=== PATIENT | male | born 1975 | race Two or more races ===

== ENCOUNTER 2017-04-08 17:56 | Inpatient (IN) | payer MEDICARE, MEDICAID ==
[~2017-04-08] VITALS: Ht 162.6 cm; Wt 64.6 kg
[~2017-04-08 17:56] MED LIST: ALBUTEROL2.5 MG/3 M INH; ASPIR 8181 MG GT; BACLOFEN10 MG GT; COLACE100 MG/10 GT; DIABETA5 MG GT; DIGOXIN ELIX0.125 MG GT; DULCOLAX10 MG RC; FERROUS SULFAT325 MG GT; FOLIC ACID1 MG GT; GLUCOPHAGE500 MG GT; GLUCOPHAGE500 MG ORAL; KEPPRA LIQ100 MG/1 M GT; LANTUS SOL100 UNIT/1 SUBQ; LOPID600 MG GT; METOPROLOL TART25 MG GT; MILK OF MA400 MG/51 GT; MULTIVITAMINS1 EAC2 GT; PROTONIX40 M2 GT; TRAMADOL HCL50 MG GT; TYLENOL650 MG/20. GT; VITAMIN C500 M1 GT
[2017-04-08 17:59] VITALS: BP 131/56
[2017-04-08] MEDS ORDERED: BACLOFEN10 MG ORAL (18:13)
[2017-04-08] MEDS ORDERED: LORazepam Inj 2mg/ml 1ml IV PRN (18:15)
[2017-04-08] MEDS ORDERED: Morphine Sulfate 4mg/ml Inj IVP PRN (18:15)
[2017-04-08] MEDS ORDERED: Miralax 17gm pkt ORAL PRN (18:15)
[2017-04-08] MEDS ORDERED: DuoNeb 0.5-3(2.5)mg/3ml neb HHN PRN (18:15)
[2017-04-08] MEDS ORDERED: PERIDEX 0.12% O15 ML ORO (18:16)
[2017-04-08] MEDS ORDERED: DULCOLAX10 MG RC (18:18)
[2017-04-08] MEDS ORDERED: LOPRESSOR25 M1 GT (18:29)
[2017-04-08] MEDS ORDERED: LOPID600 MG GT (18:30)
[2017-04-08] MEDS ORDERED: METFORMIN HCL1000 M1 GT (18:31)
[2017-04-08] MEDS ORDERED: ZOFRAN4 M1 IM (18:32)
[2017-04-08] MEDS ORDERED: OMEPRAZOLE40 M1 GT (18:33)
[2017-04-08] MEDS ORDERED: NOVOLIN R100 UNIT/1 SUBQ (18:35)
[2017-04-08 18:36] LABS: EOSINOPHILS % (AUTO) 7.7 % (0.0-3.0); LYMPHOCYTES % (AUTO) 29.4 % (20.0-45.0); MEAN CORPUSCULAR HEMOGLOBIN 28.4 PG (27.0-31.0); MEAN CORPUSCULAR HGB CONC 32.3 G/DL (32.0-36.0); MEAN CORPUSCULAR VOLUME 88 FL (80-99); MEAN PLATELET VOLUME 8.5 FL (6.5-10.1); MONOCYTES % (AUTO) 4.8 % (1.0-10.0); PLATELET COUNT 172 K/UL (150-450); RED BLOOD COUNT 3.37 M/UL (4.70-6.10); RED CELL DISTRIBUTION WIDTH 17.7 % (11.6-14.8); WHITE BLOOD COUNT 9.3 K/UL (4.8-10.8)
--- NOTE | 2017-04-08 18:37 | Emergency Room Report ---
History of Present Illness General Chief Complaint: Gastrointestinal Bleed Source: Medical Record, EMS, PMD Present Illness HPI [id number] sent from SNF with one episode of blood in stool. Patient on trach/vent, not providing HPI. All info from PMD, EMR No family members bedside Allergies: Coded Allergies: No Known Allergies (Verified , 01/23/09) Patient History Limited by: medical condition Past Medical History: old chart reviewed, unable to obtain Past Surgical History: unable to obtain Pertinent Family History: unable to obtain Social History: Denies: alcohol use, drug use, smoking Immunizations: UTD Reviewed Nursing Documentation: PMH: Agreed, PSxH: Agreed Nursing Documentation-PMH Hx Cardiac Problems: Yes Hx Hypertension: Yes Hx Diabetes: Yes Hx Cancer: Yes Hx Neurological Problems: Yes - Subdural Hematoma, Chronic Encephalopathy Hx Cerebrovascular Accident: Yes Hx Seizures: Yes Hx Traumatic Brain Injury: Yes - Intracranial Trauma 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 Review of Systems All Other Systems: limited - Aphasic from trach/vent, chronic respi failure Physical Exam Vital Signs Date Time Temp Pulse Resp B/P Pulse Ox O2 Delivery O2 Flow Rate FiO2 04/08/17 17:43 103 18 30 04/08/17 17:43 Mechanical Ventilator 04/08/17 17:53 97.3 108/66 100 3.0 Sp02 EP Interpretation: reviewed, abnormal General Appearance: normal inspection, well appearing, no apparent distress, non-toxic Head: normocephalic, atraumatic Eyes: bilateral eye EOMI, bilateral eye PERRL ENT: normal ENT inspection, normal pharynx, no angioedema, normal voice Neck: normal inspection, full range of motion, supple, no bony tend, tracheotomy Respiratory: normal inspection, lungs clear, normal breath sounds, no respiratory distress, no retraction, no wheezing Cardiovascular #1: regular rate, rhythm, no edema, tachycardia Gastrointestinal: normal inspection, normal bowel sounds, non tender, soft, no guarding, no hernia Rectal: other - No bright red blood per rectum or dark stool Genitourinary: no CVA tenderness Musculoskeletal: normal inspection, back normal, normal range of motion, Janusz' s Sign negative Neurologic: normal inspection, alert, oriented x3, responsive, air cargo agent III-XII nml as tested, motor strength/tone normal, speech normal Psychiatric: normal inspection, judgement/insight normal, mood/affect normal Skin: normal inspection, normal color, no rash Medical Decision Making Diagnostic Impression: Primary Impression: Gastrointestinal hemorrhage Qualified Codes: K92.2 - Gastrointestinal hemorrhage, unspecified Additional Impression: Tachycardia ER Course Tachycardia - Normotensive. Afebrile. - Labs: H&H stable. No metabolic abnormality. UA negative for infection - ECG sinus tach - Will need admission for serial CBC, eval for lower GI bleed - No jaret red blood per rectum currently. Endorsed to Dr Hernandez at 630pm for [facility] admission EKG Diagnostic Results Rate: tachycardiac Rhythm: NSR ST Segments: no acute changes ASA given to the pt in ED: No Rhythm Strip Diag. Results EP Interpretation: yes Rate: 104 Chest X-Ray Diagnostic Results Chest X-Ray Ordered: Yes # of Views/Limited/Complete: 1 View EP Interpretation: Yes Interpretation: no consolidation, no effusion, no pneumothorax, no acute cardiopulmonary disease Indication: Other - Tachycardia Impression: No acute disease Interpreting ER Provider: Nancy Last Vital Signs Date Time Temp Pulse Resp B/P Pulse Ox O2 Delivery O2 Flow Rate FiO2 04/08/17 18:04 109 15 Mechanical Ventilator 12.0 30 04/08/17 17:59 98.0 131/56 100 Status: improved Disposition: ADMITTED INPATIENT Condition: Serious BEENA THOMPSON M.D. Apr 08, 2017 18:37
[2017-04-08 18:57] LABS: APPEARANCE,URINE CLEAR; KETONES,URINE NEGATIVE (NEGATIVE); LEUKOCYTE ESTERASE ,URINE NEGATIVE (NEGATIVE); NITRITE,URINE NEGATIVE (NEGATIVE); PH,URINE 6 (4.5-8.0); PROTEIN,URINE NEGATIVE (NEGATIVE); UROBILINOGEN,URINE NORMAL MG/DL (0.0-1.0)
[2017-04-08 19:02] LABS: PROTHROMBIN TIME 10.6 SEC (9.30-11.50); TROPONIN I < 0.30 ng/mL (<=0.30)
[2017-04-08 19:09] LABS: WBC,URINE 0-2 /HPF (0 - 0)
[2017-04-08 19:10] LABS: ALANINE AMINOTRANSFERASE 30 U/L (3-41); ALBUMIN/GLOBULIN RATIO 0.8 (1.0-2.7); ANION GAP 21 (5-15); ASPARTATE AMINO TRANSFERASE 47 U/L (5-40); CALCIUM 9.9 mg/dL (8.6-10.2); CARBON DIOXIDE 24 mEQ/L (20-30); CHLORIDE 92 mEQ/L (98-107); CREATININE 0.6 mg/dL (0.7-1.2); GLOMERULAR FILTRATION RATE > 60 mL/min (>60); HEMOLYSIS 85; POTASSIUM 4.7 mEQ/L (3.4-4.9); SODIUM 137 mEQ/L (135-145); TOTAL PROTEIN 8.9 g/dL (6.6-8.7)
[2017-04-08 19:15] LABS: HEMOLYSIS 16; IRON 71 ug/dL (59-158); TOTAL IRON BINDING CAPACITY 313 ug/dL (250-400)
[2017-04-08 19:41] VITALS: BP 110/73
[2017-04-08] MEDS ORDERED: Vancomycin 1250mg/D5W 275ml IVPB SCH ×2 (21:00)
[2017-04-08] MEDS: levETIRAcetam 500mg/5ml Liquid GT SCH (21:39)
[2017-04-08] MEDS: Metoprolol 25mg tab GT SCH (21:40)
[2017-04-08] MEDS: NovoLOG Insulin Flexpen SUBQ SCH (22:10)
--- NOTE | 2017-04-08 22:13 | Consultation ---
Consult Note Consult Note ID Dic# [id number] VAL MONROY M.D. Apr 08, 2017 22:13
[2017-04-08] MEDS ORDERED: Piperacillin/Tazobactam 3.375 GM in NS 110 ML IVPB SCH (23:00)
[2017-04-08] MEDS ORDERED: Vancomycin 1 GM in D5W 275 ML IV SCH (23:00)
--- NOTE | 2017-04-08 23:45 | Consultation ---
DATE OF CONSULTATION: 04/08/2017 INFECTIOUS DISEASE CONSULTATION CONSULTING PHYSICIAN: Charlie Newman M.D. REFERRING PHYSICIAN: Go Hernandez M.D. REASON FOR CONSULTATION: Evaluation of the patient for possible sepsis, antibiotic management, diarrhea, and low-grade fever. HISTORY OF PRESENT ILLNESS: The patient is a 41-year-old male with multiple medical problems who was admitted to this medical center for lower gastrointestinal bleed. Also, the patient was found to have diarrhea. Infectious Disease has been requested for further evaluation of the patient and antibiotic treatment. PAST MEDICAL HISTORY: 1. History of dysphagia status post percutaneous endoscopic gastrostomy placement. 2. History of subdural hematoma. 3. History of encephalopathy. 4. Seizure disorder. 5. History of ventriculoperitoneal shunt. 6. History of atrial fibrillation. 7. Hypertension. 8. Chronic obstructive pulmonary disease. 9. Status post trach. 10. Diabetes. 11. Anemia. MEDICATIONS: Zosyn and IV vancomycin. SOCIAL HISTORY: The patient lives in a alf. FAMILY HISTORY: Unobtainable. REVIEW OF SYSTEMS: Unobtainable. PHYSICAL EXAMINATION: VITAL SIGNS: Temperature 98 degrees, blood pressure 142/75, pulse 86, and respiratory rate 18. HEENT: Mild pale conjunctivae. No icterus. NECK: No lymphadenopathy. Trach in place. CHEST: Coarse breathing sounds. HEART: S1 and S2. ABDOMEN: Soft. G-tube in place. EXTREMITIES: No cyanosis. NEUROLOGIC: Nonverbal. LABORATORY DATA: White blood cells 9.2, hemoglobin 9.6, and platelets 172,000. UA is unremarkable. BUN 13 and creatinine 0.6. ALT, AST, and alkaline phosphatase are unremarkable. Chest x-ray is pending. ASSESSMENT: The patient is a 41-year-old male with multiple medical problems, who has: 1. Diarrhea, rule out Clostridium difficile. 2. Gastrointestinal bleed. 3. Anemia. PLAN: 1. We will hold Zosyn and vancomycin. 2. We will start the patient on oral Flagyl empirically. 3. Monitor CBC. 4. Monitor BMP. 5. We will send stool culture and stool for C. difficile. 6. Monitor sputum culture. 7. Based on the patient's clinical course and labs, we will do further recommendation. Thank you, Dr. Hernandez, for allowing me to participate in the care of this patient. I will follow the patient with you during this hospitalization. Charlie Newman M.D. DR: ANTHONY JOB#: [id number] CC:
[2017-04-09] MEDS: NovoLOG Insulin Flexpen SUBQ SCH ×4 (06:10→21:07)
[2017-04-09] MEDS: metroNIDAZOLE 500mg 100 ML IVPB SCH ×3 (06:44→21:39)
[2017-04-09 07:43] LABS: EOSINOPHILS % (AUTO) 9.1 % (0.0-3.0); LYMPHOCYTES % (AUTO) 36.3 % (20.0-45.0); MEAN CORPUSCULAR HEMOGLOBIN 27.3 PG (27.0-31.0); MEAN CORPUSCULAR HGB CONC 30.9 G/DL (32.0-36.0); MEAN CORPUSCULAR VOLUME 89 FL (80-99); MEAN PLATELET VOLUME 8.9 FL (6.5-10.1); MONOCYTES % (AUTO) 5.6 % (1.0-10.0); NEUTROPHILS % (AUTO) 46.9 % (45.0-75.0); PLATELET COUNT 190 K/UL (150-450); RED BLOOD COUNT 3.02 M/UL (4.70-6.10); RED CELL DISTRIBUTION WIDTH 17.8 % (11.6-14.8); WHITE BLOOD COUNT 9.6 K/UL (4.8-10.8)
[2017-04-09 08:00] VITALS: BP 124/67
[2017-04-09 08:07] LABS: ANION GAP 16 (5-15); CALCIUM 9.5 mg/dL (8.6-10.2); CARBON DIOXIDE 27 mEQ/L (20-30); CHLORIDE 95 mEQ/L (98-107); CREATININE 0.5 mg/dL (0.7-1.2); GLOMERULAR FILTRATION RATE > 60 mL/min (>60); HEMOLYSIS 0; PHOSPHORUS 2.9 mg/dL (2.5-4.8); POTASSIUM 3.9 mEQ/L (3.4-4.9); SODIUM 138 mEQ/L (135-145)
--- NOTE | 2017-04-09 08:51 | Infectious Diseases Prog Note ---
Assessment/Plan Assessment/Plan ASSESSMENT: 41 y/o male with: // Diarrhea r/o C.difficile - toxin pending // Afebrile without leukocytosis // LGIB - dec Hgb // Chronic VDRF SP trach, PEG // Chronic encephalopathy - h/o SDH, VPS // COPD // DM2 // NH resident // NKDA // Full Code PLAN: - continue flagyl d# 2 - f/u cultures, C.diff toxin - monitor CBC, temperatures - monitor BMP - vent support, trach care, aspiration precautions Subjective Allergies: Coded Allergies: No Known Allergies (Verified , 01/23/09) Subjective remains afebrile on vent dec Hgb Objective Vital Signs Last 24 Hour Vital Signs Date Time Temp Pulse Resp B/P Pulse Ox O2 Delivery O2 Flow Rate FiO2 04/09/17 06:57 106 13 30 04/09/17 05:23 106 20 30 04/09/17 04:00 30 04/09/17 04:00 103 04/09/17 02:47 104 14 30 04/09/17 00:41 101 13 30 04/09/17 00:00 97 04/09/17 00:00 30 04/08/17 22:58 102 12 30 04/08/17 21:40 109 142/75 04/08/17 21:02 103 16 30 04/08/17 19:49 98.0 101 16 110/73 100 Mechanical Ventilator 12.0 30 04/08/17 19:41 98.0 101 16 110/73 100 Mechanical Ventilator 04/08/17 18:44 100 16 30 04/08/17 18:04 109 15 Mechanical Ventilator 12.0 30 04/08/17 18:02 12.0 30 04/08/17 17:59 98.0 109 15 131/56 100 Mechanical Ventilator 04/08/17 17:53 97.3 101 13 108/66 100 Trach Collar 3.0 04/08/17 17:43 103 18 Mechanical Ventilator 30 04/08/17 17:43 103 18 30 Height (Feet): 5 Height (Inches): 4.00 Weight (Pounds): 135 General Appearance: no acute distress HEENT: status post trach Respiratory/Chest: decreased breath sounds Cardiovascular: normal rate, regular rhythm Abdomen: normal bowel sounds, soft, non tender, non distended, other - PEG Laboratory Tests Test 04/08/17 18:15 04/08/17 18:20 04/09/17 06:37 White Blood Count 9.3 K/UL (4.8-10.8) 9.6 K/UL (4.8-10.8) Red Blood Count 3.37 M/UL (4.70-6.10) L 3.02 M/UL (4.70-6.10) L Hemoglobin 9.6 G/DL (14.2-18.0) L 8.2 G/DL (14.2-18.0) L Hematocrit 29.7 % (42.0-52.0) L 26.7 % (42.0-52.0) L Mean Corpuscular Volume 88 FL (80-99) 89 FL (80-99) Mean Corpuscular Hemoglobin 28.4 PG (27.0-31.0) 27.3 PG (27.0-31.0) Mean Corpuscular Hemoglobin Concent 32.3 G/DL (32.0-36.0) 30.9 G/DL (32.0-36.0) L Red Cell Distribution Width 17.7 % (11.6-14.8) H 17.8 % (11.6-14.8) H Platelet Count 172 K/UL (150-450) 190 K/UL (150-450) Mean Platelet Volume 8.5 FL (6.5-10.1) 8.9 FL (6.5-10.1) Neutrophils (%) (Auto) 56.0 % (45.0-75.0) 46.9 % (45.0-75.0) Lymphocytes (%) (Auto) 29.4 % (20.0-45.0) 36.3 % (20.0-45.0) Monocytes (%) (Auto) 4.8 % (1.0-10.0) 5.6 % (1.0-10.0) Eosinophils (%) (Auto) 7.7 % (0.0-3.0) H 9.1 % (0.0-3.0) H Basophils (%) (Auto) 2.0 % (0.0-2.0) 2.0 % (0.0-2.0) Prothrombin Time 10.6 SEC (9.30-11.50) Prothromb Time International Ratio 1.0 (0.9-1.1) Sodium Level 137 mEQ/L (135-145) 138 mEQ/L (135-145) Potassium Level 4.7 mEQ/L (3.4-4.9) 3.9 mEQ/L (3.4-4.9) Chloride Level 92 mEQ/L (98-107) L 95 mEQ/L (98-107) L Carbon Dioxide Level 24 mEQ/L (20-30) 27 mEQ/L (20-30) Anion Gap 21 (5-15) H 16 (5-15) H Blood Urea Nitrogen 17 mg/dL (7-23) 12 mg/dL (7-23) Creatinine 0.6 mg/dL (0.7-1.2) L 0.5 mg/dL (0.7-1.2) L Estimat Glomerular Filtration Rate > 60 mL/min (>60) > 60 mL/min (>60) Glucose Level 187 mg/dL (74-106) H 164 mg/dL (74-106) H Calcium Level 9.9 mg/dL (8.6-10.2) 9.5 mg/dL (8.6-10.2) Iron Level 71 ug/dL (59-158) Total Iron Binding Capacity 313 ug/dL (250-400) Percent Iron Saturation 23 % (15-50) Unsaturated Iron Binding 242 ug/dL (112-346) Total Bilirubin 0.6 mg/dL (0.0-1.2) Aspartate Amino Transf (AST/SGOT) 47 U/L (5-40) H Alanine Aminotransferase (ALT/SGPT) 30 U/L (3-41) Alkaline Phosphatase 91 U/L (40-129) Troponin I < 0.30 ng/mL (<=0.30) Total Protein 8.9 g/dL (6.6-8.7) H Albumin 4.0 g/dL (3.5-5.2) 3.6 g/dL (3.5-5.2) Globulin 4.9 g/dL Albumin/Globulin Ratio 0.8 (1.0-2.7) L Urine Color Pale yellow Urine Appearance Clear Urine pH 6 (4.5-8.0) Urine Specific [place] 1.015 (1.005-1.035) Urine Protein Negative (NEGATIVE) Urine Glucose (UA) Negative (NEGATIVE) Urine Ketones Negative (NEGATIVE) Urine Occult Blood 1+ (NEGATIVE) H Urine Nitrite Negative (NEGATIVE) Urine Bilirubin Negative (NEGATIVE) Urine Urobilinogen Normal MG/DL (0.0-1.0) Urine Leukocyte Esterase Negative (NEGATIVE) Urine RBC 2-4 /HPF (0 - 0) H Urine WBC 0-2 /HPF (0 - 0) Urine Squamous Epithelial Cells None /LPF (NONE/OCC) Urine Bacteria None /HPF (NONE) Phosphorus Level 2.9 mg/dL (2.5-4.8) Current Medications Medications (Trade) Dose Ordered Sig/Lyudmila Route PRN Reason Start Time Stop Time Status Last Admin Dose Admin Acetaminophen (Tylenol) 650 mg Q4H PRN ORAL FEVER 04/08/17 18:15 05/08/17 18:14 Albuterol/ Ipratropium 3 ml 3 ml Q4H PRN HHN Shortness of Breath 04/08/17 18:15 04/13/17 18:14 Dextrose (Dextrose 50%) STAT PRN IV Hypoglycemia 04/08/17 18:15 05/08/17 18:14 Digoxin (Lanoxin) 0.25 mg DAILY GT 04/09/17 09:00 05/09/17 08:59 Insulin Aspart BEFORE MEALS AND HS SUBQ 04/08/17 21:00 05/08/17 20:59 04/09/17 06:10 Levetiracetam (Keppra) 500 mg Q12HR GT 04/08/17 21:00 05/08/17 20:59 04/08/17 21:39 Lorazepam (Ativan 2mg/ml 1ml) 2 mg Q2H PRN IV For Anxiety 04/08/17 18:15 04/15/17 18:14 Metoprolol Tartrate (Lopressor) 25 mg Q12HR GT 04/08/17 21:00 05/08/17 20:59 04/08/17 21:40 Metronidazole (Flagyl) 100 ml @ 100 mls/hr Q8HR IVPB 04/09/17 06:00 04/16/17 05:59 04/09/17 06:44 Morphine Sulfate (Morphine Sulfate) 4 mg Q4H PRN IVP Severe Pain (Pain Scale 7-10) 04/08/17 18:15 04/15/17 18:14 Ondansetron HCl (Zofran) 4 mg Q6H PRN IVP Nausea & Vomiting 04/08/17 18:15 05/08/17 18:14 Polyethylene Glycol (Miralax) 17 gm DAILYPRN PRN ORAL Constipation 04/08/17 18:15 05/08/17 18:14 Sodium Chloride (0.45% NS 1000ml) 1,000 ml @ 75 mls/hr [id number] IV 04/08/17 19:00 05/08/17 18:59 04/08/17 18:57 DIMITRI ABDUL Apr 09, 2017 08:51
[2017-04-09] MEDS: levETIRAcetam 500mg/5ml Liquid GT SCH ×2 (09:03→21:05)
[2017-04-09] MEDS: Digoxin Elixir 0.125mg GT SCH (09:03)
[2017-04-09] MEDS: Metoprolol 25mg tab GT SCH ×2 (09:03→21:05)
[2017-04-09] MEDS ORDERED: Nulytely 4L ORAL ONE (09:15)
[2017-04-09] MEDS ORDERED: Tubing IV Secondary IV ONE (10:00)
--- NOTE | 2017-04-09 10:58 | Diagnostic Imaging Report ---
Indications: Shortness of breath Technique: Portable AP chest Findings: Comparison: 11/03/14 Cardiac silhouette remains normal in size. Pulmonary vasculature remains within normal limits. Lungs and pleura remain clear. Tracheostomy tube, ventriculoperitoneal shunt remain in place.. IMPRESSION: No evidence of acute disease, unchanged Stable chronic changes as described
--- NOTE | 2017-04-09 11:15 | Consultation ---
DATE OF CONSULTATION: 04/09/2017 CHIEF COMPLAINT: Anemia. HISTORY OF PRESENT ILLNESS: The patient is a 41-year-old male on chronic vent and PEG, was transferred to the hospital with rectal bleeding. PAST MEDICAL HISTORY: 1. Seizure disorder. 2. Dysphagia with G-tube. 3. Chronic respiratory failure, on vent. 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 5. History of traumatic brain injury. 6. Hypercholesterolemia. 7. Anemia. 8. Multiple myeloma. 9. Diabetes. MEDICATIONS: Please see medication reconciliation list. ALLERGIES: No known drug allergies. SOCIAL HISTORY: Currently lives in custodial. No history of tobacco, alcohol, or drug abuse. FAMILY HISTORY: Noncontributory. REVIEW OF SYSTEMS: Unable to obtain. PHYSICAL EXAMINATION: GENERAL: The patient is intubated and lying uncomfortably. VITAL SIGNS: Temperature is 98 degrees, pulse 106, respirations 16, and blood pressure is 142/75. HEENT: Normocephalic and atraumatic. Pale conjunctivae. NECK: Supple. Trach in place CARDIOVASCULAR: Tachy. Regular rate. Plus S1 and S2. LUNGS: Clear to auscultation bilaterally. ABDOMEN: Soft and nontender. No rebound. No guarding. No peritoneal sign. EXTREMITIES: No cyanosis. No clubbing. No edema. LABORATORY DATA: White count is 9.6, hemoglobin 8.2, hematocrit 26.7, and platelet count 190,000. BUN is 12 and creatinine 0.5. Iron saturation . ASSESSMENT AND PLAN: The patient is a 41-year-old patient with anemia, dysphagia, and chronic respiratory failure. PLAN: We will watch the G-tube with 500 mL of water to see if there is any active upper GI bleeding. Meanwhile, the patient to be started on PPI for GI prophylaxis given the patient has chronic vent for a stress ulcerations. If the G-tube lavage is negative, we will plan to do a colonoscopy tomorrow to evaluate for lower GI bleeding. I want to thank, Dr. Hernandez, for this kind referral. Bolivar Piedra M.D. DR: Sierra JOB#: [id number] CC: Go Hernandez M.D.; Fax#: [phone]
[2017-04-09 12:00] VITALS: BP 97/53
--- NOTE | 2017-04-09 12:49 | History and Physical ---
History of Present Illness General Date patient seen: Apr 09, 2017 Reason for Hospitalization: Gastrointestinal Bleed Present Illness HPI 41 year old male with hx of chronic Vent/trach/peg vegetative state sent from SNF with one episode of blood in stool. Pt is admitted to [facility] for further workup. Allergies: Coded Allergies: No Known Allergies (Verified , 01/23/09) Medication History Scheduled Ascorbic Acid* (Vitamin C*), 500 MG GT DAILY, (Reported) Aspirin* (Aspir 81*), 81 MG GT DAILY, (Reported) Baclofen* (Baclofen*), 10 MG GT QHS, (Reported) Digoxin (Digoxin), 250 MCG GT DAILY, (Reported) Docusate Sodium (Docusate Sodium), 100 MG GT DAILY, (Reported) Ferrous Sulfate* (Ferrous Sulfate*), 330 MG GT DAILY, (Reported) Folic Acid* (Folic Acid*), 1 MG GT DAILY, (Reported) Gemfibrozil* (Lopid*), 600 MG GT TWICE A DAY, (Reported) Gemfibrozil* (Lopid*), 600 MG GT TWICE A DAY, (Reported) Glyburide* (Diabeta*), 5 MG GT BID, (Reported) Insulin Glargine (Lantus), 47 UNITS SUBQ Q12HR, (Reported) Insulin Regular, Human* (Novolin R*), 0 SUBQ .SLIDING SCALE, (Reported) Levetiracetam (Keppra), 500 MG GT Q12HR, (Reported) Metformin Hcl* (Glucophage*), 500 MG GT DAILY, (Reported) Metformin Hcl* (Metformin Hcl*), 1,000 MG GT BID, (Reported) Metoprolol Tartrate (Metoprolol Tartrate), 25 MG GT DAILY, (Reported) Metoprolol Tartrate* (Metoprolol Tartrate*), 25 MG GT Q12HR, (Reported) Multivitamins* (Multivitamins*), 5 ML GT DAILY, (Reported) Omeprazole (Omeprazole), 20 MG GT DAILY, (Reported) Pantoprazole Sodium (Protonix), 40 MG GT DAILY, (Reported) Scheduled PRN Acetaminophen (Acetaminophen), 650 MG GT Q4HR PRN for Prn Headache/Temp > 101, ( Reported) Albuterol Sulfate* (Albuterol Sulfate Hhn*), 3 ML INH Q6H PRN for Shortness of Breath, (Reported) Baclofen* (Baclofen*), 10 MG ORAL THREE TIMES A DAY PRN for q8h, (Reported) Bisacodyl (Dulcolax), 10 MG RC DAILY PRN for Constipation, (Reported) Magnesium Hydroxide* (Milk Of Magnesia*), 30 ML GT DAILY PRN for Constipation, ( Reported) Ondansetron (Zofran), 4 MG IM Q6H PRN for Nausea & Vomiting, (Reported) Tramadol Hcl* (Ultram*), 50 MG GT Q6H PRN for For Pain, (Reported) Miscellaneous Medications Bisacodyl (Dulcolax), Unknown Dose RC, (Reported) Patient History Healthcare decision maker Resuscitation status Advanced Directive on File Past Medical/Surgical History Past Medical/Surgical History: (1) Chronic vegetative state (2) Chronic respiratory failure (3) Feeding by G-tube (4) assisted resident Review of Systems All Other Systems: negative except mentioned in HPI Physical Exam General Appearance: WD/WN Lines, tubes and drains: peripheral, central line HEENT: normocephalic, atraumatic Neck: non-tender, normal alignment Respiratory/Chest: chest wall non-tender, lungs clear Breasts: no masses Cardiovascular/Chest: normal peripheral pulses, normal rate Abdomen: normal bowel sounds, non tender Genitourinary/Rectal: normal rectal exam, heme negative stool Extremities: normal range of motion, non-tender Skin Exam: normal pigmentation Neurologic: woods overseer II-XII grossly normal Last 24 Hour Vital Signs Date Time Temp Pulse Resp B/P Pulse Ox O2 Delivery O2 Flow Rate FiO2 04/09/17 12:00 100.0 97 12 97/53 100 Mechanical Ventilator 30 04/09/17 12:00 30 04/09/17 10:52 104 15 30 04/09/17 09:03 106 124/67 04/09/17 09:03 106 04/09/17 08:49 106 16 30 04/09/17 08:00 99.9 106 13 124/67 100 Mechanical Ventilator 30 04/09/17 08:00 30 04/09/17 08:00 99 04/09/17 06:57 106 13 30 04/09/17 05:23 106 20 30 04/09/17 04:00 30 04/09/17 04:00 103 04/09/17 02:47 104 14 30 04/09/17 00:41 101 13 30 04/09/17 00:00 97 04/09/17 00:00 30 04/08/17 22:58 102 12 30 04/08/17 21:40 109 142/75 04/08/17 21:02 103 16 30 04/08/17 19:49 98.0 101 16 110/73 100 Mechanical Ventilator 12.0 30 04/08/17 19:41 98.0 101 16 110/73 100 Mechanical Ventilator 04/08/17 18:44 100 16 30 04/08/17 18:04 109 15 Mechanical Ventilator 12.0 30 04/08/17 18:02 12.0 30 04/08/17 17:59 98.0 109 15 131/56 100 Mechanical Ventilator 04/08/17 17:53 97.3 101 13 108/66 100 Trach Collar 3.0 04/08/17 17:43 103 18 Mechanical Ventilator 30 04/08/17 17:43 103 18 30 Intake and Output 04/08/17 04/09/17 19:00 07:00 Intake Total 0 ml 979 ml Output Total 300 ml Balance -300 ml 979 ml Intake Oral 0 ml IV Total 929 ml Other 50 ml Output Urine Total 300 ml # Voids 2 # Bowel Movements 7 Laboratory Tests Test 04/08/17 18:15 04/08/17 18:20 04/09/17 06:37 White Blood Count 9.3 K/UL (4.8-10.8) 9.6 K/UL (4.8-10.8) Red Blood Count 3.37 M/UL (4.70-6.10) L 3.02 M/UL (4.70-6.10) L Hemoglobin 9.6 G/DL (14.2-18.0) L 8.2 G/DL (14.2-18.0) L Hematocrit 29.7 % (42.0-52.0) L 26.7 % (42.0-52.0) L Mean Corpuscular Volume 88 FL (80-99) 89 FL (80-99) Mean Corpuscular Hemoglobin 28.4 PG (27.0-31.0) 27.3 PG (27.0-31.0) Mean Corpuscular Hemoglobin Concent 32.3 G/DL (32.0-36.0) 30.9 G/DL (32.0-36.0) L Red Cell Distribution Width 17.7 % (11.6-14.8) H 17.8 % (11.6-14.8) H Platelet Count 172 K/UL (150-450) 190 K/UL (150-450) Mean Platelet Volume 8.5 FL (6.5-10.1) 8.9 FL (6.5-10.1) Neutrophils (%) (Auto) 56.0 % (45.0-75.0) 46.9 % (45.0-75.0) Lymphocytes (%) (Auto) 29.4 % (20.0-45.0) 36.3 % (20.0-45.0) Monocytes (%) (Auto) 4.8 % (1.0-10.0) 5.6 % (1.0-10.0) Eosinophils (%) (Auto) 7.7 % (0.0-3.0) H 9.1 % (0.0-3.0) H Basophils (%) (Auto) 2.0 % (0.0-2.0) 2.0 % (0.0-2.0) Prothrombin Time 10.6 SEC (9.30-11.50) Prothromb Time International Ratio 1.0 (0.9-1.1) Sodium Level 137 mEQ/L (135-145) 138 mEQ/L (135-145) Potassium Level 4.7 mEQ/L (3.4-4.9) 3.9 mEQ/L (3.4-4.9) Chloride Level 92 mEQ/L (98-107) L 95 mEQ/L (98-107) L Carbon Dioxide Level 24 mEQ/L (20-30) 27 mEQ/L (20-30) Anion Gap 21 (5-15) H 16 (5-15) H Blood Urea Nitrogen 17 mg/dL (7-23) 12 mg/dL (7-23) Creatinine 0.6 mg/dL (0.7-1.2) L 0.5 mg/dL (0.7-1.2) L Estimat Glomerular Filtration Rate > 60 mL/min (>60) > 60 mL/min (>60) Glucose Level 187 mg/dL (74-106) H 164 mg/dL (74-106) H Calcium Level 9.9 mg/dL (8.6-10.2) 9.5 mg/dL (8.6-10.2) Iron Level 71 ug/dL (59-158) Total Iron Binding Capacity 313 ug/dL (250-400) Percent Iron Saturation 23 % (15-50) Unsaturated Iron Binding 242 ug/dL (112-346) Total Bilirubin 0.6 mg/dL (0.0-1.2) Aspartate Amino Transf (AST/SGOT) 47 U/L (5-40) H Alanine Aminotransferase (ALT/SGPT) 30 U/L (3-41) Alkaline Phosphatase 91 U/L (40-129) Troponin I < 0.30 ng/mL (<=0.30) Total Protein 8.9 g/dL (6.6-8.7) H Albumin 4.0 g/dL (3.5-5.2) 3.6 g/dL (3.5-5.2) Globulin 4.9 g/dL Albumin/Globulin Ratio 0.8 (1.0-2.7) L Urine Color Pale yellow Urine Appearance Clear Urine pH 6 (4.5-8.0) Urine Specific [place] 1.015 (1.005-1.035) Urine Protein Negative (NEGATIVE) Urine Glucose (UA) Negative (NEGATIVE) Urine Ketones Negative (NEGATIVE) Urine Occult Blood 1+ (NEGATIVE) H Urine Nitrite Negative (NEGATIVE) Urine Bilirubin Negative (NEGATIVE) Urine Urobilinogen Normal MG/DL (0.0-1.0) Urine Leukocyte Esterase Negative (NEGATIVE) Urine RBC 2-4 /HPF (0 - 0) H Urine WBC 0-2 /HPF (0 - 0) Urine Squamous Epithelial Cells None /LPF (NONE/OCC) Urine Bacteria None /HPF (NONE) Phosphorus Level 2.9 mg/dL (2.5-4.8) Height (Feet): 5 Height (Inches): 4.00 Weight (Pounds): 135 Medications Current Medications Medications (Trade) Dose Ordered Sig/Lyudmila Route PRN Reason Start Time Stop Time Status Last Admin Dose Admin Acetaminophen (Tylenol) 650 mg Q4H PRN ORAL FEVER 04/08/17 18:15 05/08/17 18:14 Albuterol/ Ipratropium 3 ml 3 ml Q4H PRN HHN Shortness of Breath 04/08/17 18:15 04/13/17 18:14 Dextrose (Dextrose 50%) STAT PRN IV Hypoglycemia 04/08/17 18:15 05/08/17 18:14 Digoxin (Lanoxin) 0.25 mg DAILY GT 04/09/17 09:00 05/09/17 08:59 04/09/17 09:03 Insulin Aspart BEFORE MEALS AND HS SUBQ 04/08/17 21:00 05/08/17 20:59 04/09/17 12:15 Levetiracetam (Keppra) 500 mg Q12HR GT 04/08/17 21:00 05/08/17 20:59 04/09/17 09:03 Lorazepam (Ativan 2mg/ml 1ml) 2 mg Q2H PRN IV For Anxiety 04/08/17 18:15 04/15/17 18:14 Metoprolol Tartrate (Lopressor) 25 mg Q12HR GT 04/08/17 21:00 05/08/17 20:59 04/09/17 09:03 Metronidazole (Flagyl) 100 ml @ 100 mls/hr Q8HR IVPB 04/09/17 06:00 04/16/17 05:59 04/09/17 06:44 Morphine Sulfate (Morphine Sulfate) 4 mg Q4H PRN IVP Severe Pain (Pain Scale 7-10) 04/08/17 18:15 04/15/17 18:14 Ondansetron HCl (Zofran) 4 mg Q6H PRN IVP Nausea & Vomiting 04/08/17 18:15 05/08/17 18:14 Pantoprazole (Protonix) 40 mg DAILY IV 04/10/17 09:00 05/10/17 08:59 Polyethylene Glycol (Miralax) 17 gm DAILYPRN PRN ORAL Constipation 04/08/17 18:15 05/08/17 18:14 Sodium Chloride (0.45% NS 1000ml) 1,000 ml @ 75 mls/hr [id number] IV 04/08/17 19:00 05/08/17 18:59 04/09/17 09:04 Assessment/Plan Problem List: (1) Hemorrhagic shock SNOMED: 812084 (2) Chronic vegetative state ICD Codes: R40.3 - Persistent vegetative state SNOMED: 15273106, 032408633 (3) Tachycardia ICD Codes: R00.0 - Tachycardia, unspecified SNOMED: 5476334 (4) Sepsis ICD Codes: A41.9 - Sepsis, unspecified organism SNOMED: 17366360 (5) Pneumonia ICD Codes: J18.9 - Pneumonia, unspecified organism SNOMED: 423451313 (6) Feeding by G-tube ICD Codes: Z93.1 - Gastrostomy status SNOMED: 066952322, 569078856 (7) Chronic respiratory failure ICD Codes: J96.10 - Chronic respiratory failure, unspecified whether with hypoxia or hypercapnia SNOMED: 90787350 Respiratory: monitor respiratory rate, adjust FIO2, CXR Cardiac: continue to monitor HR/BP Renal: F/U I&O, keep IV fluid Infectious Disease: check cultures, continue antibiotics Gastrointestinal: continue feedings/current rate Endocrine: monitor blood sugar, check HgA1C, continue sliding scale insulin Hematologic: monitor H/H, transfuse if hgb<8.5 Neurologic: PRN Ativan, keep patient comfortable Affect: PRN ativan Prophylaxis: Protonix, Heparin Notes Reviewed: television program director, renal Discussed with: nurses, consultants, disease case manager SHANEL NIEVES Apr 09, 2017 12:49
[2017-04-09 16:00] VITALS: BP 131/64
[2017-04-09] MEDS ORDERED: 1/2 NS 1000ml IV ONE (18:52)
[2017-04-10] VITALS (7 sets, daily range): BP systolic 100–111; BP diastolic 54–63
[2017-04-10 06:14] LABS: MEAN CORPUSCULAR HGB CONC 32.7 G/DL (32.0-36.0); MEAN CORPUSCULAR VOLUME 89 FL (80-99); MEAN PLATELET VOLUME 8.5 FL (6.5-10.1); PLATELET COUNT 137 K/UL (150-450); RED BLOOD COUNT 2.42 M/UL (4.70-6.10); RED CELL DISTRIBUTION WIDTH 17.6 % (11.6-14.8); WHITE BLOOD COUNT 7.3 K/UL (4.8-10.8)
[2017-04-10] MEDS: metroNIDAZOLE 500mg 100 ML IVPB SCH ×3 (06:14→21:14)
[2017-04-10] MEDS: NovoLOG Insulin Flexpen SUBQ SCH ×4 (06:15→21:01)
[2017-04-10 06:18] LABS: ANION GAP 17 (5-15); CALCIUM 9.2 mg/dL (8.6-10.2); CARBON DIOXIDE 24 mEQ/L (20-30); CHLORIDE 99 mEQ/L (98-107); CREATININE 0.4 mg/dL (0.7-1.2); GLOMERULAR FILTRATION RATE > 60 mL/min (>60); HEMOLYSIS 31; POTASSIUM 3.7 mEQ/L (3.4-4.9); SODIUM 140 mEQ/L (135-145)
[2017-04-10 08:32] LABS: ANISOCYTOSIS 1+; BAND NEUTROPHILS % (MANUAL) 0 % (0-8); BASOPHILS % (MANUAL) 0 % (0-2); EOSINOPHILS % (MANUAL) 7 % (0-3); HYPOCHROMASIA 1+; LYMPHOCYTES % (MANUAL) 40 % (20-45); NEUTROPHILS % (MANUAL) 47 % (45-75); PLATELET ESTIMATE DECREASED; PLATELET MORPHOLOGY NORMAL; TOTAL CELLS COUNTED 100
[2017-04-10] MEDS: levETIRAcetam 500mg/5ml Liquid GT SCH ×2 (08:52→20:59)
[2017-04-10] MEDS: Digoxin Elixir 0.125mg GT SCH (08:53)
[2017-04-10] MEDS: Metoprolol 25mg tab GT SCH ×2 (09:00→21:00)
[2017-04-10] MEDS: Pantoprazole Inj IV SCH (09:35)
[2017-04-10 09:54] LABS: OTHERS PATHOLOGIST COMMENT
--- NOTE | 2017-04-10 12:15 | Pulmonology Progress Note ---
Assessment/Plan Problems: (1) Hemorrhagic shock (2) Chronic vegetative state (3) Tachycardia (4) Sepsis (5) Pneumonia (6) Feeding by G-tube (7) Chronic respiratory failure Respiratory: monitor respiratory rate, adjust FIO2, CXR Cardiac: continue to monitor HR/BP Renal: F/U I&O, keep IV fluid, check electrolytes Infectious Disease: check cultures, continue antibiotics, other - f/u stool for c-diff Gastrointestinal: continue feedings/current rate Endocrine: monitor blood sugar, check TSH Hematologic: monitor H/H, transfuse if hgb<8.5 Neurologic: PRN Ativan, PRN Morphine, keep patient comfortable Affect: PRN ativan Prophylaxis: Protonix Notes Reviewed: cardio, renal Discussed with: nurses, consultants, manager case Subjective ROS Limited/Unobtainable: Yes Allergies: Coded Allergies: No Known Allergies (Verified , 01/23/09) Objective Last 24 Hour Vital Signs Date Time Temp Pulse Resp B/P Pulse Ox O2 Delivery O2 Flow Rate FiO2 04/10/17 11:04 88 14 30 04/10/17 09:01 78 12 30 04/10/17 09:00 78 103/62 04/10/17 08:53 78 04/10/17 08:00 97.9 79 12 103/62 100 Mechanical Ventilator 30 04/10/17 08:00 30 04/10/17 06:36 82 12 30 04/10/17 05:24 93 18 30 04/10/17 04:00 97 04/10/17 04:00 30 04/10/17 04:00 97.9 91 14 109/63 100 Mechanical Ventilator 04/10/17 02:57 98 13 30 04/10/17 01:24 90 12 30 04/10/17 00:00 30 04/10/17 00:00 89 04/09/17 23:07 88 12 30 04/09/17 21:05 97 118/54 04/09/17 20:36 99 16 30 04/09/17 20:00 30 04/09/17 20:00 99 04/09/17 19:14 92 17 30 04/09/17 16:59 96 12 30 04/09/17 16:00 78 04/09/17 16:00 30 04/09/17 16:00 98.4 97 13 131/64 100 Mechanical Ventilator 30 04/09/17 15:05 100 12 30 04/09/17 12:49 102 12 30 Intake and Output 04/09/17 04/10/17 19:00 07:00 Intake Total 850 ml 1650 ml Output Total 600 ml Balance 850 ml 1050 ml IV Total 850 ml 1000 ml Other 650 ml Output Urine Total 600 ml # Voids 2 # Bowel Movements 8 8 General Appearance: WD/WN HEENT: normocephalic, atraumatic, status post trach Respiratory/Chest: chest wall non-tender, crackles/rales Cardiovascular: normal peripheral pulses, normal rate Abdomen: normal bowel sounds, soft, non tender Genitourinary: normal external genitalia Extremities: no cyanosis Skin: no rash Neurologic/Psychiatric: pigment processor II-XII grossly normal, no motor/sensory deficits Lymphatic: no neck adenopathy, no groin adenopathy Musculoskeletal: no effusion Laboratory Tests 04/09/17 14:50: Stool Occult Blood Positive 04/10/17 03:45: White Blood Count 7.3, Red Blood Count 2.42L, Hemoglobin 7.0L, Hematocrit 21.5L , Mean Corpuscular Volume 89, Mean Corpuscular Hemoglobin 29.0, Mean Corpuscular Hemoglobin Concent 32.7, Red Cell Distribution Width 17.6H, Platelet Count 137L, Mean Platelet Volume 8.5, Neutrophils (%) (Auto) , Lymphocytes (%) (Auto) , Monocytes (%) (Auto) , Eosinophils (%) (Auto) , Basophils (%) (Auto) , Differential Total Cells Counted 100, Neutrophils % ( Manual) 47, Lymphocytes % (Manual) 40, Monocytes % (Manual) 6, Eosinophils % ( Manual) 7H, Basophils % (Manual) 0, Band Neutrophils 0, Other Cell Type Pathologist comment, Platelet Estimate DecreasedL, Platelet Morphology Normal, Hypochromasia 1+, Anisocytosis 1+, Sodium Level 140, Potassium Level 3.7, Chloride Level 99, Carbon Dioxide Level 24, Anion Gap 17H, Blood Urea Nitrogen 5L, Creatinine 0.4L, Estimat Glomerular Filtration Rate > 60, Glucose Level 158H , Calcium Level 9.2 Current Medications Medications (Trade) Dose Ordered Sig/Lyudmila Route PRN Reason Start Time Stop Time Status Last Admin Dose Admin Acetaminophen (Tylenol) 650 mg Q4H PRN ORAL FEVER 04/08/17 18:15 05/08/17 18:14 Albuterol/ Ipratropium 3 ml 3 ml Q4H PRN HHN Shortness of Breath 04/08/17 18:15 04/13/17 18:14 Dextrose (Dextrose 50%) STAT PRN IV Hypoglycemia 04/08/17 18:15 05/08/17 18:14 Digoxin (Lanoxin) 0.25 mg DAILY GT 04/09/17 09:00 05/09/17 08:59 04/10/17 08:53 Insulin Aspart BEFORE MEALS AND HS SUBQ 04/08/17 21:00 05/08/17 20:59 04/10/17 11:42 Levetiracetam (Keppra) 500 mg Q12HR GT 04/08/17 21:00 05/08/17 20:59 04/10/17 08:52 Lorazepam (Ativan 2mg/ml 1ml) 2 mg Q2H PRN IV For Anxiety 04/08/17 18:15 04/15/17 18:14 Metoprolol Tartrate (Lopressor) 25 mg Q12HR GT 04/08/17 21:00 05/08/17 20:59 04/09/17 21:05 Metronidazole (Flagyl) 100 ml @ 100 mls/hr Q8HR IVPB 04/09/17 06:00 04/16/17 05:59 04/10/17 06:14 Morphine Sulfate (Morphine Sulfate) 4 mg Q4H PRN IVP Severe Pain (Pain Scale 7-10) 04/08/17 18:15 04/15/17 18:14 Ondansetron HCl (Zofran) 4 mg Q6H PRN IVP Nausea & Vomiting 04/08/17 18:15 05/08/17 18:14 Pantoprazole (Protonix) 40 mg DAILY IV 04/10/17 09:00 05/10/17 08:59 04/10/17 09:35 Polyethylene Glycol (Miralax) 17 gm DAILYPRN PRN ORAL Constipation 04/08/17 18:15 05/08/17 18:14 Sodium Chloride (0.45% NS 1000ml) 1,000 ml @ 75 mls/hr [id number] IV 04/08/17 19:00 05/08/17 18:59 04/10/17 11:43 SHANEL NIEVES Apr 10, 2017 12:15
--- NOTE | 2017-04-10 12:48 | Pre-Procedure Note/Attestation ---
Pre-Procedure Note/Attestation Complete Prior to Procedure Planned Procedure: not applicable Procedure Narrative: colonoscopy Indications for Procedure Pre-Operative Diagnosis: anemia Attestation I attest that I discussed the nature of the procedure; its benefits; risks and complications; and alternatives (and the risks and benefits of such alternatives ), prior to the procedure, with the patient (or the patient's legal customer response representative). I attest that, if there was a reasonable possibility of needing a blood transfusion, the patient (or the patient's legal customer response representative) was given the [facility] standardized written summary, pursuant to the Humphrey Anupam Blood Safety Act ([place] Health and Safety Code # 1645, as amended). I attest that I re-evaluated the patient just prior to the surgery and that there has been no change in the patient's H&P, except as documented below: RAMANA SORENSON Apr 10, 2017 12:48
--- NOTE | 2017-04-10 13:04 | Endoscopy Procedure Note ---
Endoscopy Procedure Note Indication for Procedure: anemia Procedures Performed: colonoscopy Operative Findings/Diagnosis: hemorrhoids Specimen: none Pt Tolerated Procedure Well: Yes Estimated Blood Loss: none Anesthesiologist: raven Anesthesia: MAC Implant(s) used?: No 50 yrs or older w/o bx or poly: Not Applicable 10yrs. F/U not recommended: Not Applicable RAMANA SORENSON Apr 10, 2017 13:04
--- NOTE | 2017-04-10 13:11 | Immediate Post-Op Evaluation ---
Immediate Post-Op Evalulation Immediate Post-Op Evalulation Procedure: colonoscopy Date of Evaluation: Apr 10, 2017 Time of Evaluation: 13:09 IV Fluids: 150 Blood Pressure Systolic: 107 Blood Pressure Diastolic: 65 Pulse Rate: 74 Respiratory Rate: 14 O2 Sat by Pulse Oximetry: 100 Nausea: No Vomiting: No Complications none Patient Status: reacts, ventilated Hydration Status: adequate Drug: none TINY GERBER CRNA Apr 10, 2017 13:11
--- NOTE | 2017-04-10 13:15 | Anethesia Preoperative Eval ---
Anesthesia Pre-op PMH/ROS General Date of Evaluation: Apr 10, 2017 Time of Evaluation: 12:55 Anesthesiologist: chris ASA Score: ASA 4 Mallampati Score Class I : Soft palate, uvula, fauces, pillars visible Class II: Soft palate, uvula, fauces visible Class III: Soft palate, base of uvula visible Class IV: Only hard plate visible Mallampati Classification: Class III Surgeon: raquel Diagnosis: anemia/gl bleed Surgical Procedure: colonoscopy Anesthesia History: none Family History: no anesthesia problems Allergies: Coded Allergies: No Known Allergies (Verified , 01/23/09) Medications: see eMAR Past Medical History Cardiovascular: Reports: HTN Pulmonary: Reports: other - mech ventilated/trached Gastrointestinal/Genitourinary: Denies: CRI, ESRD, GERD, other Neurologic/Psychiatric: Reports: other - chronic veg state Endocrine: Reports: DM HEENT: Denies: NIKOLSKI (L), NIKOLSKI (R), cataract (L), cataract (R), glaucoma, other Hematology/Immune: Reports: anemia Musculoskeletal/Integumentary: Denies: DDD, DJD, OA, RA, edema, other PMH Narrative: 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 Exam Physician Exam Last Vital Signs Date Time Temp Pulse Resp B/P Pulse Ox O2 Delivery O2 Flow Rate FiO2 04/10/17 12:39 82 14 30 04/10/17 09:00 103/62 04/10/17 08:00 97.9 100 Mechanical Ventilator 04/08/17 19:49 12.0 Constitutional: other - trach/vent/peg/vegetated stated Neurologic: other - reacts to pain Cardiovascular: RRR Respiratory: CTA Gastrointestinal: S/NT/ND Airway Exam Mallampati Score: Class III MO: limited ROM: limited Dentures: no lower, no upper Anesthesia Pre-op A/P Labs Hematology Test 04/10/17 03:45 White Blood Count 7.3 K/UL (4.8-10.8) Red Blood Count 2.42 M/UL (4.70-6.10) L Hemoglobin 7.0 G/DL (14.2-18.0) L Hematocrit 21.5 % (42.0-52.0) L Mean Corpuscular Volume 89 FL (80-99) Mean Corpuscular Hemoglobin 29.0 PG (27.0-31.0) Mean Corpuscular Hemoglobin Concent 32.7 G/DL (32.0-36.0) Red Cell Distribution Width 17.6 % (11.6-14.8) H Platelet Count 137 K/UL (150-450) L Mean Platelet Volume 8.5 FL (6.5-10.1) Neutrophils (%) (Auto) % (45.0-75.0) Lymphocytes (%) (Auto) % (20.0-45.0) Monocytes (%) (Auto) % (1.0-10.0) Eosinophils (%) (Auto) % (0.0-3.0) Basophils (%) (Auto) % (0.0-2.0) Differential Total Cells Counted 100 Neutrophils % (Manual) 47 % (45-75) Lymphocytes % (Manual) 40 % (20-45) Monocytes % (Manual) 6 % (1-10) Eosinophils % (Manual) 7 % (0-3) H Basophils % (Manual) 0 % (0-2) Band Neutrophils 0 % (0-8) Other Cell Type Pathologist comment Platelet Estimate Decreased L Platelet Morphology Normal Hypochromasia 1+ Anisocytosis 1+ Chemistry Test 04/10/17 03:45 Sodium Level 140 mEQ/L (135-145) Potassium Level 3.7 mEQ/L (3.4-4.9) Chloride Level 99 mEQ/L (98-107) Carbon Dioxide Level 24 mEQ/L (20-30) Anion Gap 17 (5-15) H Blood Urea Nitrogen 5 mg/dL (7-23) L Creatinine 0.4 mg/dL (0.7-1.2) L Estimat Glomerular Filtration Rate > 60 mL/min (>60) Glucose Level 158 mg/dL (74-106) H Calcium Level 9.2 mg/dL (8.6-10.2) Studies Pre-op Studies: EKG - sr Risk Assessment & Plan Assessment: mac Status Change Before Surgery: No Pre-Antibiotics Drug: none TINY GERBER CRNA Apr 10, 2017 13:15
--- NOTE | 2017-04-10 13:41 | 48 Hour Post Anesthesia Eval ---
Post Anesthesia Evaluation Procedure: colonoscopy Date of Evaluation: Apr 10, 2017 Time of Evaluation: 13:41 Blood Pressure Systolic: 120 0: 74 Pulse Rate: 70 Respiratory Rate: 14 O2 Sat by Pulse Oximetry: 100 Airway: other - mech ventilated Nausea: No Vomiting: No Hydration Status: adequate Mental Status/LOC: patient returned to baseline Post-Anesthesia Complications: none Follow-up care needed: N/A TINY GERBER CRNA Apr 10, 2017 13:41
--- NOTE | 2017-04-10 18:01 | Procedure Note ---
DATE OF PROCEDURE: 04/10/2017 PROCEDURE: Colonoscopy. SURGEON: Bolivar Piedra M.D. ANESTHESIA: Per EARNEST, Linda Gudino. REFERRING PHYSICIAN: Go Hernandez M.D. INSTRUMENT: Olympus adult flexible colonoscope. INDICATION: Anemia. The procedure, risks, benefits, and possible consequences, including hemorrhage, aspiration, perforation and infection, and alternative treatments, were explained to the patient/legal guardian by Dr. Bolivar Piedra and the patient/legal guardian understood and accepted these risks. DESCRIPTION OF PROCEDURE: After informed consent was obtained and the patient was adequately sedated, first rectal exam was performed, which was positive for internal hemorrhoids. Then, the scope was advanced from rectum into the cecum, documented by appendiceal orifice, ileocecal valve, and right upper quadrant palpation. Quality of preparation was good. The patient had normal colonoscopic examination. No active bleeding was seen. No mass. No polyp. No diverticulosis. No active bleeding. Retroflexion of the rectum showed evidence of internal hemorrhoids. SUMMARY OF FINDINGS: Normal colonoscopic examination except for internal hemorrhoids. RECOMMENDATIONS: Resume tube feeding. Monitor hemoglobin and hematocrit. Transfuse as needed. If the patient's stool OB comes back positive, we will consider doing endoscopy. I want to thank, Dr. Hernandez, for this kind referral. Bolivar Piedra M.D. DR: TRINIDAD JOB#: [id number] CC: Go Hernandez M.D.; Fax#: [phone]
--- NOTE | 2017-04-10 20:08 | Cardiology Report ---
APPROVED REPORT EKG Measurement Heart [id number] Sinus tachycardia with short [place] Otherwise normal ECG
--- NOTE | 2017-04-10 20:26 | Infectious Diseases Prog Note ---
Assessment/Plan Assessment/Plan ASSESSMENT: 41 y/o male with: // Diarrhea r/o C.difficile - toxin pending // Afebrile without leukocytosis // LGIB - dec Hgb - SP colonoscopy 04/10: hemorrhoids // Chronic VDRF SP trach, PEG // Chronic encephalopathy / persistent vegetative state - h/o SDH, VPS // COPD // DM2 // [facility] resident // NKDA // Full Code PLAN: - continue flagyl d# 3 - f/u cultures, C.diff toxin - monitor CBC, temperatures - monitor BMP - vent support, trach care, aspiration precautions Subjective Allergies: Coded Allergies: No Known Allergies (Verified , 01/23/09) Subjective low grade fever x1 resolved. on vent SP colonoscopy: hemorrhoids Objective Vital Signs Last 24 Hour Vital Signs Date Time Temp Pulse Resp B/P Pulse Ox O2 Delivery O2 Flow Rate FiO2 04/10/17 20:00 78 04/10/17 19:30 78 12 40 04/10/17 16:48 94 15 30 04/10/17 16:00 30 04/10/17 16:00 97.9 84 12 111/60 100 Mechanical Ventilator 30 04/10/17 16:00 75 04/10/17 15:04 89 12 30 04/10/17 14:24 97.7 82 12 107/54 100 Mechanical Ventilator 04/10/17 13:41 70 14 100 04/10/17 13:11 74 14 100 04/10/17 12:39 82 14 30 04/10/17 12:00 30 04/10/17 12:00 82 04/10/17 12:00 97.7 82 12 107/54 100 Mechanical Ventilator 30 04/10/17 11:04 88 14 30 04/10/17 09:01 78 12 30 04/10/17 09:00 78 103/62 04/10/17 08:53 78 04/10/17 08:00 97.9 79 12 103/62 100 Mechanical Ventilator 30 04/10/17 08:00 30 04/10/17 08:00 81 04/10/17 06:36 82 12 30 04/10/17 05:24 93 18 30 04/10/17 04:00 97 04/10/17 04:00 30 04/10/17 04:00 97.9 91 14 109/63 100 Mechanical Ventilator 04/10/17 02:57 98 13 30 04/10/17 01:24 90 12 30 04/10/17 00:00 30 04/10/17 00:00 89 04/09/17 23:07 88 12 30 04/09/17 21:05 97 118/54 04/09/17 20:36 99 16 30 Height (Feet): 5 Height (Inches): 4.00 Weight (Pounds): 135 General Appearance: no acute distress HEENT: status post trach Respiratory/Chest: decreased breath sounds Cardiovascular: normal rate, regular rhythm Abdomen: normal bowel sounds, soft, non tender, non distended Laboratory Tests Test 04/10/17 03:45 White Blood Count 7.3 K/UL (4.8-10.8) Red Blood Count 2.42 M/UL (4.70-6.10) L Hemoglobin 7.0 G/DL (14.2-18.0) L Hematocrit 21.5 % (42.0-52.0) L Mean Corpuscular Volume 89 FL (80-99) Mean Corpuscular Hemoglobin 29.0 PG (27.0-31.0) Mean Corpuscular Hemoglobin Concent 32.7 G/DL (32.0-36.0) Red Cell Distribution Width 17.6 % (11.6-14.8) H Platelet Count 137 K/UL (150-450) L Mean Platelet Volume 8.5 FL (6.5-10.1) Neutrophils (%) (Auto) % (45.0-75.0) Lymphocytes (%) (Auto) % (20.0-45.0) Monocytes (%) (Auto) % (1.0-10.0) Eosinophils (%) (Auto) % (0.0-3.0) Basophils (%) (Auto) % (0.0-2.0) Differential Total Cells Counted 100 Neutrophils % (Manual) 47 % (45-75) Lymphocytes % (Manual) 40 % (20-45) Monocytes % (Manual) 6 % (1-10) Eosinophils % (Manual) 7 % (0-3) H Basophils % (Manual) 0 % (0-2) Band Neutrophils 0 % (0-8) Other Cell Type Pathologist comment Platelet Estimate Decreased L Platelet Morphology Normal Hypochromasia 1+ Anisocytosis 1+ Sodium Level 140 mEQ/L (135-145) Potassium Level 3.7 mEQ/L (3.4-4.9) Chloride Level 99 mEQ/L (98-107) Carbon Dioxide Level 24 mEQ/L (20-30) Anion Gap 17 (5-15) H Blood Urea Nitrogen 5 mg/dL (7-23) L Creatinine 0.4 mg/dL (0.7-1.2) L Estimat Glomerular Filtration Rate > 60 mL/min (>60) Glucose Level 158 mg/dL (74-106) H Calcium Level 9.2 mg/dL (8.6-10.2) Current Medications Medications (Trade) Dose Ordered Sig/Lyudmila Route PRN Reason Start Time Stop Time Status Last Admin Dose Admin Acetaminophen (Tylenol) 650 mg Q4H PRN ORAL FEVER 04/08/17 18:15 05/08/17 18:14 Albuterol/ Ipratropium 3 ml 3 ml Q4H PRN HHN Shortness of Breath 04/08/17 18:15 04/13/17 18:14 Dextrose (Dextrose 50%) STAT PRN IV Hypoglycemia 04/08/17 18:15 05/08/17 18:14 Digoxin (Lanoxin) 0.25 mg DAILY GT 04/09/17 09:00 05/09/17 08:59 04/10/17 08:53 Insulin Aspart BEFORE MEALS AND HS SUBQ 04/08/17 21:00 05/08/17 20:59 04/10/17 17:50 Levetiracetam (Keppra) 500 mg Q12HR GT 04/08/17 21:00 05/08/17 20:59 04/10/17 08:52 Lorazepam (Ativan 2mg/ml 1ml) 2 mg Q2H PRN IV For Anxiety 04/08/17 18:15 04/15/17 18:14 Metoprolol Tartrate (Lopressor) 25 mg Q12HR GT 04/08/17 21:00 05/08/17 20:59 04/09/17 21:05 Metronidazole (Flagyl) 100 ml @ 100 mls/hr Q8HR IVPB 04/09/17 06:00 04/16/17 05:59 04/10/17 06:14 Morphine Sulfate (Morphine Sulfate) 4 mg Q4H PRN IVP Severe Pain (Pain Scale 7-10) 04/08/17 18:15 04/15/17 18:14 Ondansetron HCl (Zofran) 4 mg Q6H PRN IVP Nausea & Vomiting 04/08/17 18:15 05/08/17 18:14 Pantoprazole (Protonix) 40 mg DAILY IV 04/10/17 09:00 05/10/17 08:59 04/10/17 09:35 Polyethylene Glycol (Miralax) 17 gm DAILYPRN PRN ORAL Constipation 04/08/17 18:15 05/08/17 18:14 Sodium Chloride (0.45% NS 1000ml) 1,000 ml @ 75 mls/hr [id number] IV 04/08/17 19:00 05/08/17 18:59 04/10/17 11:43 DIMITRI ABDUL Apr 10, 2017 20:26
[2017-04-10] MEDS ORDERED: Acetaminophen 650mg/20.3ml GT PRN (23:45)
[2017-04-10] MEDS ORDERED: Miralax 17gm pkt GT PRN (23:45)
[2017-04-11 00:44] VITALS: BP 124/78
--- NOTE | 2017-04-11 02:41 | Wound Care Consultation ---
Wound Assessment Wound Assessment : Wound Present on Admission: Yes New Wound: No Status Change of Wound: No Wound Location Body Site Modif: mid Wound Location Body Site: sacral Wound Type: pressure ulcer Anthony Test: Does not Anthony Wound Thickness: Full Thickness - scar tissue Wound Length: 4.0 Wound Width: 4.0 Wound Depth: utd Percent of Wound Ball Ground/Red: 100 Wound Drainage Amount: None Wound Drainage Odor: None/Absent Tissue Surrounding Wound: Intact Wound General Appearance: Asymptomatic, Reddened Wound Comment #1 Sacral area full thickness scar tissue pressure ulcer #2 Dry skin on neck area #3 Right heel with hard dry scab 0.8 x 0.8. Asymptomatic Recommendation -Keep clean and dry -Turn and reposition -Optimize nutrition -Offload both heels -Heel protector on both heels -Assess and f/u accordingly for any changes MAIK ACOSTA RN Apr 11, 2017 02:41
[2017-04-11 04:00] VITALS: BP 124/63
[2017-04-11] MEDS: metroNIDAZOLE 500mg 100 ML IVPB SCH ×3 (05:16→21:02)
[2017-04-11] MEDS: NovoLOG Insulin Flexpen SUBQ SCH ×4 (05:52→21:07)
[2017-04-11 07:17] LABS: CALCIUM 9.5 mg/dL (8.6-10.2); CHLORIDE 101 mEQ/L (98-107); POTASSIUM 4.7 mEQ/L (3.4-4.9); SODIUM 139 mEQ/L (135-145)
[2017-04-11 07:35] LABS: ANION GAP 18 (5-15); CARBON DIOXIDE 20 mEQ/L (20-30); CREATININE 0.5 mg/dL (0.7-1.2); GLOMERULAR FILTRATION RATE > 60 mL/min (>60); HEMOLYSIS 99
[2017-04-11 08:00] VITALS: BP 125/75
[2017-04-11] MEDS: Pantoprazole Inj IV SCH (09:00)
[2017-04-11] MEDS: levETIRAcetam 500mg/5ml Liquid GT SCH ×2 (09:53→21:02)
[2017-04-11] MEDS: Metoprolol 25mg tab GT SCH ×2 (09:54→21:01)
[2017-04-11] MEDS: Digoxin Elixir 0.125mg GT SCH (09:54)
[2017-04-11 11:05] LABS: BASOPHILS % (AUTO) 1.4 % (0.0-2.0); EOSINOPHILS % (AUTO) 11.2 % (0.0-3.0); LYMPHOCYTES % (AUTO) 34.7 % (20.0-45.0); MEAN CORPUSCULAR HGB CONC 31.6 G/DL (32.0-36.0); MEAN CORPUSCULAR VOLUME 89 FL (80-99); MEAN PLATELET VOLUME 8.3 FL (6.5-10.1); MONOCYTES % (AUTO) 6.4 % (1.0-10.0); NEUTROPHILS % (AUTO) 46.3 % (45.0-75.0); PLATELET COUNT 149 K/UL (150-450); RED BLOOD COUNT 3.22 M/UL (4.70-6.10); RED CELL DISTRIBUTION WIDTH 16.6 % (11.6-14.8); WHITE BLOOD COUNT 7.5 K/UL (4.8-10.8)
[2017-04-11] MEDS ORDERED: Heparin Sod 1000 units/ml 10ml INJ ONE (11:15)
[2017-04-11] MEDS ORDERED: Lidocaine 1% Plain 30 ml INJ ONE (11:15)
[2017-04-11] MEDS ORDERED: 1/2 NS 1000ml IV ONE (11:19)
[2017-04-11] MEDS ORDERED: Tubing IV Secondary IV ONE (11:19)
[2017-04-11 12:00] VITALS: BP 156/77
[2017-04-11] MEDS ORDERED: Heparin 2000 units/Ns 1000ml INJ ONE (12:00)
--- NOTE | 2017-04-11 13:37 | Diagnostic Imaging Report ---
Indications: Long-term central IV access required for multiple medications. Technique: The procedure indications, risks, and alternatives were explained to the patient's family who understands and gives consent to proceed. Procedure was performed at bedside. Strict aseptic technique was utilized, including hand washing, use of hat and mask, use of sterile gown and gloves, sterile ultrasound gel and probe cover, prepping of left arm skin with 2% chlorhexidine solution, and application of full body sterile barrier over this area. Skin and subcutaneous soft tissues were infiltrated with 1% lidocaine and sodium bicarbonate. A small dermatotomy was made, through which the patent, adequate size left basilic vein was punctured percutaneously under direct sonographic guidance with a 21-gauge needle. Exchange was made over a 0.018 inch guidewire for a 5 Turkmen peel-away sheath. A Bard Power-PICC 5 Turkmen dual lumen central venous catheter was cut to 45 cm, then advanced through the sheath over the guidewire. Guidewire and sheath were removed. Both catheter ports were aspirated, then flushed with heparinized saline. Catheter was secured the skin with adhesive dressing. Patient tolerated procedure well without immediate complications. Followup chest radiograph performed. Findings: Both ports aspirate and flush freely. Followup chest radiograph demonstrates tip of PICC at level of SVC/right atrial junction. IMPRESSION: Bedside placement of peripherally inserted central venous catheter via left basilic vein, working well, adequately position, may be used.
--- NOTE | 2017-04-11 14:41 | Diagnostic Imaging Report ---
APPROVED REPORT CPT Code: 04340 Present Symptoms Shortness of breath BILATERAL: Imaging reveals a patent deep venous system bilaterally. There is no evidence of thrombus within the femoral, popliteal or tibial segments. The greater saphenous veins are also within normal limits. Doppler indicates normal spontaneous flow within these segments.
--- NOTE | 2017-04-11 15:26 | GI Progress Note ---
Assessment/Plan Problems: (1) Feeding by G-tube ICD Codes: Z93.1 - Gastrostomy status SNOMED: 673878519, [id number] (2) Hemorrhagic shock SNOMED: 276500 (3) Sepsis ICD Codes: A41.9 - Sepsis, unspecified organism SNOMED: 20330987 Status: unchanged Status Narrative Discussed with Dr. Piedra. Assessment/Plan OB stool positive s/p colonoscopy SUMMARY OF FINDINGS: Normal colonoscopic examination except for internal hemorrhoids. RECOMMENDATIONS: EGD scheduled for tomorrow to evaluate anemia given unremarkable colonoscopy. - CLD, NPO @ [place]. - hold all blood thinners Prevacid monitor H&H, transfuse prn fu labs Subjective Subjective limited Objective Last 24 Hour Vital Signs Date Time Temp Pulse Resp B/P Pulse Ox O2 Delivery O2 Flow Rate FiO2 04/11/17 15:05 93 17 40 04/11/17 12:52 90 20 40 04/11/17 12:00 40 04/11/17 12:00 78 04/11/17 12:00 99.3 82 16 156/77 100 Mechanical Ventilator 40 04/11/17 11:29 93 14 40 04/11/17 09:54 95 125/75 04/11/17 09:54 95 04/11/17 09:20 95 19 40 04/11/17 08:00 40 04/11/17 08:00 99.0 90 17 125/75 100 Mechanical Ventilator 40 04/11/17 08:00 80 04/11/17 07:04 97 21 40 04/11/17 04:37 92 16 40 04/11/17 04:00 30 04/11/17 04:00 82 04/11/17 04:00 98.2 84 16 124/63 100 Mechanical Ventilator 40 04/11/17 03:07 91 14 40 04/11/17 01:08 74 13 40 04/11/17 00:44 99.0 96 16 124/78 100 Mechanical Ventilator 40 04/11/17 00:00 30 04/11/17 00:00 89 04/10/17 23:05 75 17 40 04/10/17 21:30 76 16 40 04/10/17 21:13 86 100/56 04/10/17 21:00 86 100/56 04/10/17 20:00 99.3 87 15 104/56 100 Mechanical Ventilator 40 04/10/17 20:00 30 04/10/17 20:00 78 04/10/17 19:30 78 12 40 04/10/17 16:48 94 15 30 04/10/17 16:00 30 04/10/17 16:00 97.9 84 12 111/60 100 Mechanical Ventilator 30 04/10/17 16:00 75 Intake and Output 04/10/17 04/11/17 19:00 07:00 Intake Total 825 ml 1657.05 ml Output Total 1300 ml Balance 825 ml 357.05 ml Free Water 150 ml 450 ml IV Total 375 ml 207.05 ml Tube Feeding 300 ml 720 ml Blood Product 250 ml Other 30 ml Output Urine Total 1300 ml # Bowel Movements 6 3 Laboratory Tests Test 04/11/17 06:25 04/11/17 10:45 Sodium Level 139 mEQ/L (135-145) Potassium Level 4.7 mEQ/L (3.4-4.9) Chloride Level 101 mEQ/L (98-107) Carbon Dioxide Level 20 mEQ/L (20-30) Anion Gap 18 (5-15) H Blood Urea Nitrogen 5 mg/dL (7-23) L Creatinine 0.5 mg/dL (0.7-1.2) L Estimat Glomerular Filtration Rate > 60 mL/min (>60) Glucose Level 194 mg/dL (74-106) H Calcium Level 9.5 mg/dL (8.6-10.2) White Blood Count 7.5 K/UL (4.8-10.8) Red Blood Count 3.22 M/UL (4.70-6.10) L Hemoglobin 9.0 G/DL (14.2-18.0) L Hematocrit 28.6 % (42.0-52.0) #L Mean Corpuscular Volume 89 FL (80-99) Mean Corpuscular Hemoglobin 28.0 PG (27.0-31.0) Mean Corpuscular Hemoglobin Concent 31.6 G/DL (32.0-36.0) L Red Cell Distribution Width 16.6 % (11.6-14.8) H Platelet Count 149 K/UL (150-450) L Mean Platelet Volume 8.3 FL (6.5-10.1) Neutrophils (%) (Auto) 46.3 % (45.0-75.0) Lymphocytes (%) (Auto) 34.7 % (20.0-45.0) Monocytes (%) (Auto) 6.4 % (1.0-10.0) Eosinophils (%) (Auto) 11.2 % (0.0-3.0) H Basophils (%) (Auto) 1.4 % (0.0-2.0) Height (Feet): 5 Height (Inches): 4.00 Weight (Pounds): 135 General Appearance: no apparent distress Cardiovascular: normal rate [facility] Exam: GT site - c/d/i Shanti Nicole N.P. Apr 11, 2017 15:26
[2017-04-11 16:00] VITALS: BP 126/68
--- NOTE | 2017-04-11 18:52 | Pulmonology Progress Note ---
Assessment/Plan Problems: (1) Hemorrhagic shock (2) Chronic vegetative state (3) Tachycardia (4) Sepsis (5) Pneumonia (6) Feeding by G-tube (7) Chronic respiratory failure Respiratory: monitor respiratory rate, adjust FIO2 Cardiac: continue to monitor HR/BP Renal: F/U I&O, keep IV fluid Infectious Disease: check cultures, continue antibiotics Gastrointestinal: continue feedings/current rate, hold feedings Endocrine: monitor blood sugar Hematologic: monitor H/H Neurologic: PRN Ativan Affect: PRN ativan Prophylaxis: Protonix Subjective ROS Limited/Unobtainable: Yes Allergies: Coded Allergies: No Known Allergies (Verified , 01/23/09) Objective Last 24 Hour Vital Signs Date Time Temp Pulse Resp B/P Pulse Ox O2 Delivery O2 Flow Rate FiO2 04/11/17 16:59 91 17 40 04/11/17 16:00 98.6 89 15 126/68 100 Mechanical Ventilator 40 04/11/17 16:00 79 04/11/17 16:00 40 04/11/17 15:05 93 17 40 04/11/17 12:52 90 20 40 04/11/17 12:00 40 04/11/17 12:00 78 04/11/17 12:00 99.3 82 16 156/77 100 Mechanical Ventilator 40 04/11/17 11:29 93 14 40 04/11/17 09:54 95 125/75 04/11/17 09:54 95 04/11/17 09:20 95 19 40 04/11/17 08:00 40 04/11/17 08:00 99.0 90 17 125/75 100 Mechanical Ventilator 40 04/11/17 08:00 80 04/11/17 07:04 97 21 40 04/11/17 04:37 92 16 40 04/11/17 04:00 30 04/11/17 04:00 82 04/11/17 04:00 98.2 84 16 124/63 100 Mechanical Ventilator 40 04/11/17 03:07 91 14 40 04/11/17 01:08 74 13 40 04/11/17 00:44 99.0 96 16 124/78 100 Mechanical Ventilator 40 04/11/17 00:00 30 04/11/17 00:00 89 04/10/17 23:05 75 17 40 04/10/17 21:30 76 16 40 04/10/17 21:13 86 100/56 04/10/17 21:00 86 100/56 04/10/17 20:00 99.3 87 15 104/56 100 Mechanical Ventilator 40 04/10/17 20:00 30 04/10/17 20:00 78 04/10/17 19:30 78 12 40 Intake and Output 04/10/17 04/11/17 19:00 07:00 Intake Total 825 ml 1717.05 ml Output Total 1300 ml Balance 825 ml 417.05 ml Free Water 150 ml 450 ml IV Total 375 ml 207.05 ml Tube Feeding 300 ml 780 ml Blood Product 250 ml Other 30 ml Output Urine Total 1300 ml # Bowel Movements 6 3 General Appearance: WD/WN HEENT: normocephalic, atraumatic, status post trach Respiratory/Chest: chest wall non-tender, lungs clear Cardiovascular: normal peripheral pulses, normal rate Abdomen: soft, non tender, no organomegaly Genitourinary: normal external genitalia Extremities: no cyanosis, no clubbing Microbiology Date/Time Source Procedure Growth Status 04/08/17 20:00 Nasal Nares MRSA Culture - Final NO METHICILLIN RESISTANT STAPH AUREUS... Complete Laboratory Tests 04/11/17 06:25: Sodium Level 139, Potassium Level 4.7, Chloride Level 101, Carbon Dioxide Level 20, Anion Gap 18H, Blood Urea Nitrogen 5L, Creatinine 0.5L, Estimat Glomerular Filtration Rate > 60, Glucose Level 194H, Calcium Level 9.5 04/11/17 10:45: White Blood Count 7.5, Red Blood Count 3.22L, Hemoglobin 9.0L, Hematocrit 28.6#L , Mean Corpuscular Volume 89, Mean Corpuscular Hemoglobin 28.0, Mean Corpuscular Hemoglobin Concent 31.6L, Red Cell Distribution Width 16.6H, Platelet Count 149L, Mean Platelet Volume 8.3, Neutrophils (%) (Auto) 46.3, Lymphocytes (%) (Auto) 34.7, Monocytes (%) (Auto) 6.4, Eosinophils (%) (Auto) 11.2H, Basophils (%) (Auto) 1.4 Current Medications Medications (Trade) Dose Ordered Sig/Lyudmila Route PRN Reason Start Time Stop Time Status Last Admin Dose Admin Acetaminophen (Tylenol) 650 mg EVERY 4 HOURS PRN GT Mild Pain/Temp > 100.5 04/10/17 23:45 05/10/17 23:44 Albuterol/ Ipratropium 3 ml 3 ml Q4H PRN HHN Shortness of Breath 04/08/17 18:15 04/13/17 18:14 Dextrose (Dextrose 50%) STAT PRN IV Hypoglycemia 04/08/17 18:15 05/08/17 18:14 Digoxin (Lanoxin) 0.25 mg DAILY GT 04/09/17 09:00 05/09/17 08:59 04/11/17 09:54 Insulin Aspart BEFORE MEALS AND HS SUBQ 04/08/17 21:00 05/08/17 20:59 04/11/17 16:05 Lansoprazole (Prevacid) 30 mg DAILY GT 04/11/17 10:00 05/11/17 09:59 04/11/17 09:54 Levetiracetam (Keppra) 500 mg Q12HR GT 04/08/17 21:00 05/08/17 20:59 04/11/17 09:53 Lorazepam (Ativan 2mg/ml 1ml) 2 mg Q2H PRN IV For Anxiety 04/08/17 18:15 04/15/17 18:14 Metoprolol Tartrate (Lopressor) 25 mg Q12HR GT 04/08/17 21:00 05/08/17 20:59 04/11/17 09:54 Metronidazole (Flagyl) 100 ml @ 100 mls/hr Q8HR IVPB 04/09/17 06:00 04/16/17 05:59 04/11/17 13:35 Morphine Sulfate (Morphine Sulfate) 4 mg Q4H PRN IVP Severe Pain (Pain Scale 7-10) 04/08/17 18:15 04/15/17 18:14 Ondansetron HCl (Zofran) 4 mg Q6H PRN IVP Nausea & Vomiting 04/08/17 18:15 05/08/17 18:14 Polyethylene Glycol (Miralax) 17 gm DAILY PRN GT Constipation 04/10/17 23:45 05/10/17 23:44 Sodium Chloride (0.45% NS 1000ml) 1,000 ml @ 75 mls/hr [id number] IV 04/08/17 19:00 05/08/17 18:59 04/11/17 04:33 SHANEL NIEVES Apr 11, 2017 18:52
--- NOTE | 2017-04-11 19:27 | Infectious Diseases Prog Note ---
Assessment/Plan Assessment/Plan ASSESSMENT: 41 y/o male with: // Diarrhea r/o C.difficile - toxin pending // Afebrile without leukocytosis // LGIB - dec Hgb - SP colonoscopy 04/10: hemorrhoids // Chronic VDRF SP trach, PEG // Chronic encephalopathy / persistent vegetative state - h/o SDH, VPS // COPD // DM2 // [facility] resident // NKDA // Full Code PLAN: - continue flagyl d# 4 - f/u cultures, C.diff toxin - monitor CBC, temperatures - monitor BMP - vent support, trach care, aspiration precautions Subjective Allergies: Coded Allergies: No Known Allergies (Verified , 01/23/09) Subjective low grade fever x1 resolved. on vent Objective Vital Signs Last 24 Hour Vital Signs Date Time Temp Pulse Resp B/P Pulse Ox O2 Delivery O2 Flow Rate FiO2 04/11/17 19:11 91 14 40 04/11/17 16:59 91 17 40 04/11/17 16:00 98.6 89 15 126/68 100 Mechanical Ventilator 40 04/11/17 16:00 79 04/11/17 16:00 40 04/11/17 15:05 93 17 40 04/11/17 12:52 90 20 40 04/11/17 12:00 40 04/11/17 12:00 78 04/11/17 12:00 99.3 82 16 156/77 100 Mechanical Ventilator 40 04/11/17 11:29 93 14 40 04/11/17 09:54 95 125/75 04/11/17 09:54 95 04/11/17 09:20 95 19 40 04/11/17 08:00 40 04/11/17 08:00 99.0 90 17 125/75 100 Mechanical Ventilator 40 04/11/17 08:00 80 04/11/17 07:04 97 21 40 04/11/17 04:37 92 16 40 04/11/17 04:00 30 04/11/17 04:00 82 04/11/17 04:00 98.2 84 16 124/63 100 Mechanical Ventilator 40 04/11/17 03:07 91 14 40 04/11/17 01:08 74 13 40 04/11/17 00:44 99.0 96 16 124/78 100 Mechanical Ventilator 40 04/11/17 00:00 30 04/11/17 00:00 89 04/10/17 23:05 75 17 40 04/10/17 21:30 76 16 40 04/10/17 21:13 86 100/56 04/10/17 21:00 86 100/56 04/10/17 20:00 99.3 87 15 104/56 100 Mechanical Ventilator 40 04/10/17 20:00 30 04/10/17 20:00 78 04/10/17 19:30 78 12 40 Height (Feet): 5 Height (Inches): 4.00 Weight (Pounds): 135 General Appearance: no acute distress HEENT: status post trach Respiratory/Chest: decreased breath sounds Cardiovascular: normal rate, regular rhythm Abdomen: normal bowel sounds, soft, non tender, non distended Microbiology Date/Time Source Procedure Growth Status 04/08/17 20:00 Nasal Nares MRSA Culture - Final NO METHICILLIN RESISTANT STAPH AUREUS... Complete Laboratory Tests Test 04/11/17 06:25 04/11/17 10:45 Sodium Level 139 mEQ/L (135-145) Potassium Level 4.7 mEQ/L (3.4-4.9) Chloride Level 101 mEQ/L (98-107) Carbon Dioxide Level 20 mEQ/L (20-30) Anion Gap 18 (5-15) H Blood Urea Nitrogen 5 mg/dL (7-23) L Creatinine 0.5 mg/dL (0.7-1.2) L Estimat Glomerular Filtration Rate > 60 mL/min (>60) Glucose Level 194 mg/dL (74-106) H Calcium Level 9.5 mg/dL (8.6-10.2) White Blood Count 7.5 K/UL (4.8-10.8) Red Blood Count 3.22 M/UL (4.70-6.10) L Hemoglobin 9.0 G/DL (14.2-18.0) L Hematocrit 28.6 % (42.0-52.0) #L Mean Corpuscular Volume 89 FL (80-99) Mean Corpuscular Hemoglobin 28.0 PG (27.0-31.0) Mean Corpuscular Hemoglobin Concent 31.6 G/DL (32.0-36.0) L Red Cell Distribution Width 16.6 % (11.6-14.8) H Platelet Count 149 K/UL (150-450) L Mean Platelet Volume 8.3 FL (6.5-10.1) Neutrophils (%) (Auto) 46.3 % (45.0-75.0) Lymphocytes (%) (Auto) 34.7 % (20.0-45.0) Monocytes (%) (Auto) 6.4 % (1.0-10.0) Eosinophils (%) (Auto) 11.2 % (0.0-3.0) H Basophils (%) (Auto) 1.4 % (0.0-2.0) Current Medications Medications (Trade) Dose Ordered Sig/Lyudmila Route PRN Reason Start Time Stop Time Status Last Admin Dose Admin Acetaminophen (Tylenol) 650 mg EVERY 4 HOURS PRN GT Mild Pain/Temp > 100.5 04/10/17 23:45 05/10/17 23:44 Albuterol/ Ipratropium 3 ml 3 ml Q4H PRN HHN Shortness of Breath 04/08/17 18:15 04/13/17 18:14 Dextrose (Dextrose 50%) STAT PRN IV Hypoglycemia 04/08/17 18:15 05/08/17 18:14 Digoxin (Lanoxin) 0.25 mg DAILY GT 04/09/17 09:00 05/09/17 08:59 04/11/17 09:54 Insulin Aspart BEFORE MEALS AND HS SUBQ 04/08/17 21:00 05/08/17 20:59 04/11/17 16:05 Lansoprazole (Prevacid) 30 mg DAILY GT 04/11/17 10:00 05/11/17 09:59 04/11/17 09:54 Levetiracetam (Keppra) 500 mg Q12HR GT 04/08/17 21:00 05/08/17 20:59 04/11/17 09:53 Lorazepam (Ativan 2mg/ml 1ml) 2 mg Q2H PRN IV For Anxiety 04/08/17 18:15 04/15/17 18:14 Metoprolol Tartrate (Lopressor) 25 mg Q12HR GT 04/08/17 21:00 05/08/17 20:59 04/11/17 09:54 Metronidazole (Flagyl) 100 ml @ 100 mls/hr Q8HR IVPB 04/09/17 06:00 04/16/17 05:59 04/11/17 13:35 Morphine Sulfate (Morphine Sulfate) 4 mg Q4H PRN IVP Severe Pain (Pain Scale 7-10) 04/08/17 18:15 04/15/17 18:14 Ondansetron HCl (Zofran) 4 mg Q6H PRN IVP Nausea & Vomiting 04/08/17 18:15 05/08/17 18:14 Polyethylene Glycol (Miralax) 17 gm DAILY PRN GT Constipation 04/10/17 23:45 05/10/17 23:44 Sodium Chloride (0.45% NS 1000ml) 1,000 ml @ 75 mls/hr [id number] IV 04/08/17 19:00 05/08/17 18:59 04/11/17 04:33 DIMITRI ABDUL Apr 11, 2017 19:27
[2017-04-11 20:53] VITALS: BP 146/77
[2017-04-11] MEDS ORDERED: Dyna-Hex 2% Top Sol 8oz TOPIC SCH (21:00)
[2017-04-11] MEDS: Dyna-Hex 2% Top Sol 8oz TOPIC SCH (21:07)
[2017-04-12] VITALS: BP 138/68
[2017-04-12 04:00] VITALS: BP 128/63
[2017-04-12] MEDS: metroNIDAZOLE 500mg 100 ML IVPB SCH ×3 (05:08→21:18)
[2017-04-12 05:48] LABS: BASOPHILS % (AUTO) 1.8 % (0.0-2.0); EOSINOPHILS % (AUTO) 11.4 % (0.0-3.0); LYMPHOCYTES % (AUTO) 32.5 % (20.0-45.0); MEAN CORPUSCULAR HGB CONC 32.7 G/DL (32.0-36.0); MEAN CORPUSCULAR VOLUME 89 FL (80-99); MEAN PLATELET VOLUME 9.2 FL (6.5-10.1); MONOCYTES % (AUTO) 6.9 % (1.0-10.0); NEUTROPHILS % (AUTO) 47.4 % (45.0-75.0); PLATELET COUNT 133 K/UL (150-450); RED BLOOD COUNT 2.77 M/UL (4.70-6.10); RED CELL DISTRIBUTION WIDTH 16.9 % (11.6-14.8); WHITE BLOOD COUNT 7.6 K/UL (4.8-10.8)
[2017-04-12 05:51] LABS: INR 1.1 (0.9-1.1); PROTHROMBIN TIME 11.4 SEC (9.30-11.50)
[2017-04-12 06:04] LABS: ANION GAP 14 (5-15); CALCIUM 8.5 mg/dL (8.6-10.2); CARBON DIOXIDE 24 mEQ/L (20-30); CHLORIDE 96 mEQ/L (98-107); CREATININE 0.4 mg/dL (0.7-1.2); GLOMERULAR FILTRATION RATE > 60 mL/min (>60); HEMOLYSIS 7; POTASSIUM 3.1 mEQ/L (3.4-4.9); SODIUM 134 mEQ/L (135-145)
[2017-04-12] MEDS: NovoLOG Insulin Flexpen SUBQ SCH ×4 (06:15→21:17)
--- NOTE | 2017-04-12 06:42 | Anethesia Preoperative Eval ---
Anesthesia Pre-op PMH/ROS General Date of Evaluation: Apr 12, 2017 Time of Evaluation: 06:42 Anesthesiologist: kassandra ASA Score: ASA 3 Mallampati Score Class I : Soft palate, uvula, fauces, pillars visible Class II: Soft palate, uvula, fauces visible Class III: Soft palate, base of uvula visible Class IV: Only hard plate visible Mallampati Classification: Class III Surgeon: laurita Diagnosis: anemia gib Surgical Procedure: egd Anesthesia History: none Social History: smoking - nonsmoker Family History: no anesthesia problems Allergies: Coded Allergies: No Known Allergies (Verified , 01/23/09) Medications: see eMAR Past Medical History Cardiovascular: Reports: HTN, arrhythmia Pulmonary: Reports: COPD, other - tracheostomy, resp failure Gastrointestinal/Genitourinary: Reports: GERD, other - arf, crf Neurologic/Psychiatric: Reports: CVA, other - intracranial trauma Endocrine: Reports: DM Hematology/Immune: Reports: anemia, other - dvt, multiple myeloma PSxH Narrative: g-tube Anesthesia Pre-op Phys. Exam Physician Exam Last Vital Signs Date Time Temp Pulse Resp B/P Pulse Ox O2 Delivery O2 Flow Rate FiO2 04/12/17 14:32 84 12 40 04/12/17 12:00 98.8 118/65 100 Mechanical Ventilator 04/08/17 19:49 12.0 Last Vital Signs Date Time Temp Pulse Resp B/P Pulse Ox O2 Delivery O2 Flow Rate FiO2 04/12/17 06:30 78 17 40 04/12/17 00:00 98.7 138/68 99 Mechanical Ventilator 04/08/17 19:49 12.0 Neurologic: other - paraesthesia s/p cva Cardiovascular: RRR Respiratory: other - tracheostomy, vent dependent Gastrointestinal: S/NT/ND, other - g-tube Airway Exam Mallampati Score: Class III MO: limited Neck: tracheostomy ROM: limited Teeth: other Anesthesia Pre-op A/P Labs Labs Test 04/10/17 03:45 04/11/17 06:25 04/11/17 10:45 04/12/17 03:00 White Blood Count 7.3 K/UL (4.8-10.8) 7.5 K/UL (4.8-10.8) 7.6 K/UL (4.8-10.8) Red Blood Count 2.42 M/UL (4.70-6.10) 3.22 M/UL (4.70-6.10) 2.77 M/UL (4.70-6.10) Hemoglobin 7.0 G/DL (14.2-18.0) 9.0 G/DL (14.2-18.0) 8.0 G/DL (14.2-18.0) Hematocrit 21.5 % (42.0-52.0) 28.6 % (42.0-52.0) 24.5 % (42.0-52.0) Mean Corpuscular Volume 89 FL (80-99) 89 FL (80-99) 89 FL (80-99) Mean Corpuscular Hemoglobin 29.0 PG (27.0-31.0) 28.0 PG (27.0-31.0) 29.0 PG (27.0-31.0) Mean Corpuscular Hemoglobin Concent 32.7 G/DL (32.0-36.0) 31.6 G/DL (32.0-36.0) 32.7 G/DL (32.0-36.0) Red Cell Distribution Width 17.6 % (11.6-14.8) 16.6 % (11.6-14.8) 16.9 % (11.6-14.8) Platelet Count 137 K/UL (150-450) 149 K/UL (150-450) 133 K/UL (150-450) Mean Platelet Volume 8.5 FL (6.5-10.1) 8.3 FL (6.5-10.1) 9.2 FL (6.5-10.1) Neutrophils (%) (Auto) % (45.0-75.0) 46.3 % (45.0-75.0) 47.4 % (45.0-75.0) Lymphocytes (%) (Auto) % (20.0-45.0) 34.7 % (20.0-45.0) 32.5 % (20.0-45.0) Monocytes (%) (Auto) % (1.0-10.0) 6.4 % (1.0-10.0) 6.9 % (1.0-10.0) Eosinophils (%) (Auto) % (0.0-3.0) 11.2 % (0.0-3.0) 11.4 % (0.0-3.0) Basophils (%) (Auto) % (0.0-2.0) 1.4 % (0.0-2.0) 1.8 % (0.0-2.0) Differential Total Cells Counted 100 Neutrophils % (Manual) 47 % (45-75) Lymphocytes % (Manual) 40 % (20-45) Monocytes % (Manual) 6 % (1-10) Eosinophils % (Manual) 7 % (0-3) Basophils % (Manual) 0 % (0-2) Band Neutrophils 0 % (0-8) Other Cell Type Pathologist comment Platelet Estimate Decreased Platelet Morphology Normal Hypochromasia 1+ Anisocytosis 1+ Sodium Level 140 mEQ/L (135-145) 139 mEQ/L (135-145) 134 mEQ/L (135-145) Potassium Level 3.7 mEQ/L (3.4-4.9) 4.7 mEQ/L (3.4-4.9) 3.1 mEQ/L (3.4-4.9) Chloride Level 99 mEQ/L (98-107) 101 mEQ/L (98-107) 96 mEQ/L (98-107) Carbon Dioxide Level 24 mEQ/L (20-30) 20 mEQ/L (20-30) 24 mEQ/L (20-30) Anion Gap 17 (5-15) 18 (5-15) 14 (5-15) Blood Urea Nitrogen 5 mg/dL (7-23) 5 mg/dL (7-23) 4 mg/dL (7-23) Creatinine 0.4 mg/dL (0.7-1.2) 0.5 mg/dL (0.7-1.2) 0.4 mg/dL (0.7-1.2) Estimat Glomerular Filtration Rate > 60 mL/min (>60) > 60 mL/min (>60) > 60 mL/min (>60) Glucose Level 158 mg/dL (74-106) 194 mg/dL (74-106) 172 mg/dL (74-106) Calcium Level 9.2 mg/dL (8.6-10.2) 9.5 mg/dL (8.6-10.2) 8.5 mg/dL (8.6-10.2) Prothrombin Time 11.4 SEC (9.30-11.50) Prothromb Time International Ratio 1.1 (0.9-1.1) Activated Partial Thromboplast Time 27 SEC (23-33) Hematology Test 04/11/17 10:45 04/12/17 03:00 White Blood Count 7.5 K/UL (4.8-10.8) 7.6 K/UL (4.8-10.8) Red Blood Count 3.22 M/UL (4.70-6.10) L 2.77 M/UL (4.70-6.10) L Hemoglobin 9.0 G/DL (14.2-18.0) L 8.0 G/DL (14.2-18.0) L Hematocrit 28.6 % (42.0-52.0) #L 24.5 % (42.0-52.0) L Mean Corpuscular Volume 89 FL (80-99) 89 FL (80-99) Mean Corpuscular Hemoglobin 28.0 PG (27.0-31.0) 29.0 PG (27.0-31.0) Mean Corpuscular Hemoglobin Concent 31.6 G/DL (32.0-36.0) L 32.7 G/DL (32.0-36.0) Red Cell Distribution Width 16.6 % (11.6-14.8) H 16.9 % (11.6-14.8) H Platelet Count 149 K/UL (150-450) L 133 K/UL (150-450) L Mean Platelet Volume 8.3 FL (6.5-10.1) 9.2 FL (6.5-10.1) Neutrophils (%) (Auto) 46.3 % (45.0-75.0) 47.4 % (45.0-75.0) Lymphocytes (%) (Auto) 34.7 % (20.0-45.0) 32.5 % (20.0-45.0) Monocytes (%) (Auto) 6.4 % (1.0-10.0) 6.9 % (1.0-10.0) Eosinophils (%) (Auto) 11.2 % (0.0-3.0) H 11.4 % (0.0-3.0) H Basophils (%) (Auto) 1.4 % (0.0-2.0) 1.8 % (0.0-2.0) Coagulation Test 04/12/17 03:00 Prothrombin Time 11.4 SEC (9.30-11.50) Prothromb Time International Ratio 1.1 (0.9-1.1) Activated Partial Thromboplast Time 27 SEC (23-33) Chemistry Test 04/12/17 03:00 Sodium Level 134 mEQ/L (135-145) L Potassium Level 3.1 mEQ/L (3.4-4.9) L Chloride Level 96 mEQ/L (98-107) L Carbon Dioxide Level 24 mEQ/L (20-30) Anion Gap 14 (5-15) Blood Urea Nitrogen 4 mg/dL (7-23) L Creatinine 0.4 mg/dL (0.7-1.2) L Estimat Glomerular Filtration Rate > 60 mL/min (>60) Glucose Level 172 mg/dL (74-106) H Calcium Level 8.5 mg/dL (8.6-10.2) L Risk Assessment & Plan Assessment: anemia, gib Plan: egd Status Change Before Surgery: No Pre-Antibiotics Drug: ARCENIO Mckeon Apr 12, 2017 06:42
[2017-04-12 08:00] VITALS: BP 127/65
[2017-04-12] MEDS ORDERED: KCl 10% 20 mEq/15ml liquid GT ONE (08:30)
[2017-04-12] MEDS: levETIRAcetam 500mg/5ml Liquid GT SCH ×2 (09:04→21:17)
[2017-04-12] MEDS: Digoxin Elixir 0.125mg GT SCH (09:06)
[2017-04-12] MEDS: Metoprolol 25mg tab GT SCH ×2 (09:07→20:29)
--- NOTE | 2017-04-12 11:07 | Infectious Diseases Prog Note ---
Assessment/Plan Assessment/Plan ASSESSMENT: 41 y/o male with: // Diarrhea r/o C.difficile - toxin pending // Afebrile without leukocytosis // LGIB - dec Hgb - SP colonoscopy 04/10: hemorrhoids // Chronic VDRF SP trach, PEG // Chronic encephalopathy / persistent vegetative state - h/o SDH, VPS // COPD // DM2 // [place] resident // NKDA // Full Code PLAN: - continue flagyl d# / - f/u cultures, C.diff toxin - monitor CBC, temperatures - monitor BMP - vent support, trach care, aspiration precautions Subjective Constitutional: Denies: anorexia, chills, drenching sweats, fatigue, fever, no symptoms, other Allergies: Coded Allergies: No Known Allergies (Verified , 01/23/09) Objective Vital Signs Last 24 Hour Vital Signs Date Time Temp Pulse Resp B/P Pulse Ox O2 Delivery O2 Flow Rate FiO2 04/12/17 10:36 86 17 40 04/12/17 09:07 85 127/65 04/12/17 09:06 84 04/12/17 08:46 76 17 40 04/12/17 08:00 75 04/12/17 08:00 30 04/12/17 08:00 98.8 84 15 127/65 100 Mechanical Ventilator 40 04/12/17 06:30 78 17 40 04/12/17 05:17 82 14 40 04/12/17 04:00 30 04/12/17 04:00 99.5 77 14 128/63 100 Mechanical Ventilator 40 04/12/17 04:00 81 04/12/17 03:05 79 12 40 04/12/17 01:20 77 14 40 04/12/17 01:00 30 04/12/17 00:00 98.7 81 23 138/68 99 Mechanical Ventilator 40 04/12/17 00:00 74 04/11/17 23:04 74 14 40 04/11/17 21:21 88 19 40 04/11/17 21:01 90 146/77 04/11/17 20:53 99.0 90 14 146/77 99 Mechanical Ventilator 40 04/11/17 20:00 96 04/11/17 20:00 30 04/11/17 19:11 91 14 40 04/11/17 16:59 91 17 40 04/11/17 16:00 98.6 89 15 126/68 100 Mechanical Ventilator 40 04/11/17 16:00 79 04/11/17 16:00 40 04/11/17 15:05 93 17 40 04/11/17 12:52 90 20 40 04/11/17 12:00 40 04/11/17 12:00 78 04/11/17 12:00 99.3 82 16 156/77 100 Mechanical Ventilator 40 04/11/17 11:29 93 14 40 Height (Feet): 5 Height (Inches): 4.00 Weight (Pounds): 143 HEENT: anicteric Respiratory/Chest: normal breath sounds Cardiovascular: regularly irregular Abdomen: no organomegaly Laboratory Tests Test 04/12/17 03:00 White Blood Count 7.6 K/UL (4.8-10.8) Red Blood Count 2.77 M/UL (4.70-6.10) L Hemoglobin 8.0 G/DL (14.2-18.0) L Hematocrit 24.5 % (42.0-52.0) L Mean Corpuscular Volume 89 FL (80-99) Mean Corpuscular Hemoglobin 29.0 PG (27.0-31.0) Mean Corpuscular Hemoglobin Concent 32.7 G/DL (32.0-36.0) Red Cell Distribution Width 16.9 % (11.6-14.8) H Platelet Count 133 K/UL (150-450) L Mean Platelet Volume 9.2 FL (6.5-10.1) Neutrophils (%) (Auto) 47.4 % (45.0-75.0) Lymphocytes (%) (Auto) 32.5 % (20.0-45.0) Monocytes (%) (Auto) 6.9 % (1.0-10.0) Eosinophils (%) (Auto) 11.4 % (0.0-3.0) H Basophils (%) (Auto) 1.8 % (0.0-2.0) Prothrombin Time 11.4 SEC (9.30-11.50) Prothromb Time International Ratio 1.1 (0.9-1.1) Activated Partial Thromboplast Time 27 SEC (23-33) Sodium Level 134 mEQ/L (135-145) L Potassium Level 3.1 mEQ/L (3.4-4.9) L Chloride Level 96 mEQ/L (98-107) L Carbon Dioxide Level 24 mEQ/L (20-30) Anion Gap 14 (5-15) Blood Urea Nitrogen 4 mg/dL (7-23) L Creatinine 0.4 mg/dL (0.7-1.2) L Estimat Glomerular Filtration Rate > 60 mL/min (>60) Glucose Level 172 mg/dL (74-106) H Calcium Level 8.5 mg/dL (8.6-10.2) L Current Medications Medications (Trade) Dose Ordered Sig/Lyudmila Route PRN Reason Start Time Stop Time Status Last Admin Dose Admin Acetaminophen (Tylenol) 650 mg EVERY 4 HOURS PRN GT Mild Pain/Temp > 100.5 04/10/17 23:45 05/10/17 23:44 Albuterol/ Ipratropium 3 ml 3 ml Q4H PRN HHN Shortness of Breath 04/08/17 18:15 04/13/17 18:14 Chlorhexidine Gluconate (Sanjuanita-Hex 2%) 1 applic Q24HRS TOPIC 04/11/17 21:00 05/11/17 20:59 04/11/17 21:07 Dextrose (Dextrose 50%) STAT PRN IV Hypoglycemia 04/08/17 18:15 05/08/17 18:14 Digoxin (Lanoxin) 0.25 mg DAILY GT 04/09/17 09:00 05/09/17 08:59 04/12/17 09:06 Insulin Aspart BEFORE MEALS AND HS SUBQ 04/08/17 21:00 05/08/17 20:59 04/12/17 06:15 Lansoprazole (Prevacid) 30 mg DAILY GT 04/11/17 10:00 05/11/17 09:59 04/12/17 09:06 Levetiracetam (Keppra) 500 mg Q12HR GT 04/08/17 21:00 05/08/17 20:59 04/12/17 09:04 Lorazepam (Ativan 2mg/ml 1ml) 2 mg Q2H PRN IV For Anxiety 04/08/17 18:15 04/15/17 18:14 Metoprolol Tartrate (Lopressor) 25 mg Q12HR GT 04/08/17 21:00 05/08/17 20:59 04/12/17 09:07 Metronidazole (Flagyl) 100 ml @ 100 mls/hr Q8HR IVPB 04/09/17 06:00 04/16/17 05:59 04/12/17 05:08 Morphine Sulfate (Morphine Sulfate) 4 mg Q4H PRN IVP Severe Pain (Pain Scale 7-10) 04/08/17 18:15 04/15/17 18:14 Ondansetron HCl (Zofran) 4 mg Q6H PRN IVP Nausea & Vomiting 04/08/17 18:15 05/08/17 18:14 Polyethylene Glycol (Miralax) 17 gm DAILY PRN GT Constipation 04/10/17 23:45 05/10/17 23:44 Sodium Chloride (0.45% NS 1000ml) 1,000 ml @ 75 mls/hr [id number] IV 04/08/17 19:00 05/08/17 18:59 04/12/17 01:00 VAL MONROY M.D. Apr 12, 2017 11:07
--- NOTE | 2017-04-12 11:16 | Pre-Procedure Note/Attestation ---
Pre-Procedure Note/Attestation Complete Prior to Procedure Planned Procedure: not applicable Procedure Narrative: egd Indications for Procedure Pre-Operative Diagnosis: anemia Attestation I attest that I discussed the nature of the procedure; its benefits; risks and complications; and alternatives (and the risks and benefits of such alternatives ), prior to the procedure, with the patient (or the patient's legal dermatology sales representative). I attest that, if there was a reasonable possibility of needing a blood transfusion, the patient (or the patient's legal dermatology sales representative) was given the [facility] standardized written summary, pursuant to the [place] Blood Safety Act ([place] Health and Safety Code # 1645, as amended). I attest that I re-evaluated the patient just prior to the surgery and that there has been no change in the patient's H&P, except as documented below: RAMANA SORENSON Apr 12, 2017 11:16
[2017-04-12 12:00] VITALS: BP 118/65
[2017-04-12] MEDS ORDERED: Propofol 10mg/ml 20ml IV ONE (12:45)
[2017-04-12] MEDS ORDERED: Lidocaine 1% MPF 10mg/ml 5ml ONE (12:45)
--- NOTE | 2017-04-12 12:58 | Endoscopy Procedure Note ---
Endoscopy Procedure Note Indication for Procedure: gib Procedures Performed: EGD Operative Findings/Diagnosis: gastritis Specimen: yes Pt Tolerated Procedure Well: Yes Estimated Blood Loss: none Anesthesiologist: marcus Anesthesia: MAC Implant(s) used?: No 50 yrs or older w/o bx or poly: Not Applicable 10yrs. F/U not recommended: Not Applicable RAMANA SORENSON Apr 12, 2017 12:58
[2017-04-12 16:00] VITALS: BP 121/67
--- NOTE | 2017-04-12 16:20 | Immediate Post-Op Evaluation ---
Immediate Post-Op Evalulation Immediate Post-Op Evalulation Procedure: egd Date of Evaluation: Apr 12, 2017 Time of Evaluation: 13:05 Blood Products: none Estimated Blood Loss: negligible Blood Pressure Systolic: 120 Blood Pressure Diastolic: 65 Pulse Rate: 84 Respiratory Rate: 17 O2 Sat by Pulse Oximetry: 100 Temperature (Fahrenheit): 98.8 Pain Score (1-10): 0 Nausea: No Vomiting: No Complications none Patient Status: awake, reacts, patent, ventilated Hydration Status: adequate Drug: ARCENIO Mckeon Apr 12, 2017 16:20
--- NOTE | 2017-04-12 16:22 | 48 Hour Post Anesthesia Eval ---
Post Anesthesia Evaluation Procedure: egd Date of Evaluation: Apr 12, 2017 Time of Evaluation: 16:22 Blood Pressure Systolic: 123 0: 84 Pulse Rate: 65 Respiratory Rate: 17 Temperature (Fahrenheit): 98.8 O2 Sat by Pulse Oximetry: 100 Airway: other - tracheostomy Nausea: No Vomiting: No Pain Intensity: 0 Hydration Status: adequate Cardiopulmonary Status: stable Mental Status/LOC: patient returned to baseline Post-Anesthesia Complications: none Follow-up care needed: N/A ARCENIO HALL Apr 12, 2017 16:22
--- NOTE | 2017-04-12 16:45 | Procedure Note ---
DATE OF PROCEDURE: 04/12/2017 PROCEDURE: Upper endoscopy with biopsy. SURGEON: Bolivar Piedra M.D. ANESTHESIA: Per Dr. Mosqueda. INSTRUMENT: Olympus adult flexible upper endoscope. INDICATION: Anemia, stool OB positive. Negative colonoscopy for obvious source. The procedure, risks, benefits, and possible consequences, including hemorrhage, aspiration, perforation and infection, and alternative treatments, were explained to the patient/legal guardian by Dr. Bolivar Piedra and the patient/legal guardian understood and accepted these risks. DESCRIPTION OF PROCEDURE: After informed consent was obtained and and the patient was adequately sedated, the Olympus upper endoscope was advanced from mouth into the second portion of the duodenum and retroflexion was performed in the stomach. The patient had evidence of diffuse gastritis. Random biopsy from the antrum was obtained to rule out H. pylori infection. The G-tube balloon was seen in the middle of the abdomen within the of the stomach without any obvious bleeding or ulceration around the G-tube site. The patient had some evidence of narrowing at the GE junction without any obvious esophagitis, ulceration, or any bleeding at this time. The patient tolerated the procedure well without any complication based. SUMMARY OF FINDINGS: 1. Diffuse gastritis, status post biopsy. 2. G-tube in place. 3. Narrowing at the GE junction without any obvious esophagitis. RECOMMENDATIONS: Resume G-tube feeding. Follow labs. Monitor H and H, and transfuse as needed. We will follow. Bolivar Piedra M.D. DR: TRINIDAD JOB#: [id number] CC:
--- NOTE | 2017-04-12 16:57 | Pulmonology Progress Note ---
Assessment/Plan Problems: (1) Hemorrhagic shock (2) Chronic vegetative state (3) Tachycardia (4) Sepsis (5) Pneumonia (6) Feeding by G-tube (7) Chronic respiratory failure Respiratory: monitor respiratory rate Cardiac: start pressors, continue to monitor HR/BP Renal: F/U I&O, keep IV fluid Infectious Disease: check cultures, continue antibiotics Gastrointestinal: continue feedings/current rate Endocrine: monitor blood sugar Hematologic: monitor H/H Neurologic: PRN Ativan, PRN Morphine Prophylaxis: Protonix Subjective ROS Limited/Unobtainable: Yes Allergies: Coded Allergies: No Known Allergies (Verified , 01/23/09) Objective Last 24 Hour Vital Signs Date Time Temp Pulse Resp B/P Pulse Ox O2 Delivery O2 Flow Rate FiO2 04/12/17 16:22 65 17 100 04/12/17 16:20 84 17 100 04/12/17 16:00 30 04/12/17 16:00 99.1 76 13 121/67 100 Mechanical Ventilator 40 04/12/17 14:32 84 12 40 04/12/17 12:42 78 17 40 04/12/17 12:00 98.8 72 12 118/65 100 Mechanical Ventilator 40 04/12/17 12:00 75 04/12/17 12:00 30 04/12/17 10:36 86 17 40 04/12/17 09:07 85 127/65 04/12/17 09:06 84 04/12/17 08:46 76 17 40 04/12/17 08:00 75 04/12/17 08:00 30 04/12/17 08:00 98.8 84 15 127/65 100 Mechanical Ventilator 40 04/12/17 06:30 78 17 40 04/12/17 05:17 82 14 40 04/12/17 04:00 30 04/12/17 04:00 99.5 77 14 128/63 100 Mechanical Ventilator 40 04/12/17 04:00 81 04/12/17 03:05 79 12 40 04/12/17 01:20 77 14 40 04/12/17 01:00 30 04/12/17 00:00 98.7 81 23 138/68 99 Mechanical Ventilator 40 04/12/17 00:00 74 04/11/17 23:04 74 14 40 04/11/17 21:21 88 19 40 6/27/17 21:01 90 146/77 04/11/17 20:53 99.0 90 14 146/77 99 Mechanical Ventilator 40 04/11/17 20:00 96 04/11/17 20:00 30 04/11/17 19:11 91 14 40 04/11/17 16:59 91 17 40 Intake and Output 04/11/17 04/12/17 19:00 07:00 Intake Total 1930 ml 1421.67 ml Output Total 650 ml Balance 1930 ml 771.67 ml Free Water 150 ml 150 ml IV Total 1000 ml 821.67 ml Tube Feeding 780 ml 420 ml Other 30 ml Output Urine Total 650 ml # Bowel Movements 1 General Appearance: WD/WN HEENT: normocephalic, atraumatic Respiratory/Chest: chest wall non-tender, lungs clear Cardiovascular: normal peripheral pulses, normal rate Abdomen: normal bowel sounds, soft, non tender Genitourinary: normal external genitalia Extremities: no clubbing Skin: no lesions Laboratory Tests 04/12/17 03:00: White Blood Count 7.6, Red Blood Count 2.77L, Hemoglobin 8.0L, Hematocrit 24.5L , Mean Corpuscular Volume 89, Mean Corpuscular Hemoglobin 29.0, Mean Corpuscular Hemoglobin Concent 32.7, Red Cell Distribution Width 16.9H, Platelet Count 133L, Mean Platelet Volume 9.2, Neutrophils (%) (Auto) 47.4, Lymphocytes (%) (Auto) 32.5, Monocytes (%) (Auto) 6.9, Eosinophils (%) (Auto) 11.4H, Basophils (%) (Auto) 1.8, Prothrombin Time 11.4, Prothromb Time International Ratio 1.1, Activated Partial Thromboplast Time 27, Sodium Level 134L, Potassium Level 3.1L, Chloride Level 96L, Carbon Dioxide Level 24, Anion Gap 14, Blood Urea Nitrogen 4L, Creatinine 0.4L, Estimat Glomerular Filtration Rate > 60, Glucose Level 172H, Calcium Level 8.5L Current Medications Medications (Trade) Dose Ordered Sig/Lyudmila Route PRN Reason Start Time Stop Time Status Last Admin Dose Admin Acetaminophen (Tylenol) 650 mg EVERY 4 HOURS PRN GT Mild Pain/Temp > 100.5 04/10/17 23:45 05/10/17 23:44 Albuterol/ Ipratropium (DuoNeb 0.5-3(2.5)mg/3ml) 3 ml Q4H PRN HHN Shortness of Breath 04/08/17 18:15 04/13/17 18:14 Chlorhexidine Gluconate (Sanjuanita-Hex 2%) 1 applic Q24HRS TOPIC 04/11/17 21:00 05/11/17 20:59 04/11/17 21:07 Dextrose (Dextrose 50%) STAT PRN IV Hypoglycemia 04/08/17 18:15 05/08/17 18:14 Digoxin (Lanoxin) 0.25 mg DAILY GT 04/09/17 09:00 05/09/17 08:59 04/12/17 09:06 Insulin Aspart BEFORE MEALS AND HS SUBQ 04/08/17 21:00 05/08/17 20:59 04/12/17 16:38 Lansoprazole (Prevacid) 30 mg DAILY GT 04/11/17 10:00 05/11/17 09:59 04/12/17 09:06 Levetiracetam (Keppra) 500 mg Q12HR GT 04/08/17 21:00 05/08/17 20:59 04/12/17 09:04 Lorazepam (Ativan 2mg/ml 1ml) 2 mg Q2H PRN IV For Anxiety 04/08/17 18:15 04/15/17 18:14 Metoprolol Tartrate (Lopressor) 25 mg Q12HR GT 04/08/17 21:00 05/08/17 20:59 04/12/17 09:07 Metronidazole (Flagyl) 100 ml @ 100 mls/hr Q8HR IVPB 04/09/17 06:00 04/16/17 05:59 04/12/17 14:00 Morphine Sulfate (Morphine Sulfate) 4 mg Q4H PRN IVP Severe Pain (Pain Scale 7-10) 04/08/17 18:15 04/15/17 18:14 Ondansetron HCl (Zofran) 4 mg Q6H PRN IVP Nausea & Vomiting 04/08/17 18:15 05/08/17 18:14 Polyethylene Glycol (Miralax) 17 gm DAILY PRN GT Constipation 04/10/17 23:45 05/10/17 23:44 SHANEL NIEVES Apr 12, 2017 16:57
[2017-04-12 20:00] VITALS: BP 103/56
[2017-04-12] MEDS: Dyna-Hex 2% Top Sol 8oz TOPIC SCH (21:17)
[2017-04-13] VITALS: BP 103/66
[2017-04-13 04:00] VITALS: BP 117/68
[2017-04-13 05:14] LABS: BASOPHILS % (AUTO) 1.4 % (0.0-2.0); EOSINOPHILS % (AUTO) 10.9 % (0.0-3.0); LYMPHOCYTES % (AUTO) 29.5 % (20.0-45.0); MEAN CORPUSCULAR HEMOGLOBIN 28.9 PG (27.0-31.0); MEAN CORPUSCULAR HGB CONC 32.2 G/DL (32.0-36.0); MEAN CORPUSCULAR VOLUME 90 FL (80-99); MEAN PLATELET VOLUME 8.7 FL (6.5-10.1); MONOCYTES % (AUTO) 5.5 % (1.0-10.0); NEUTROPHILS % (AUTO) 52.7 % (45.0-75.0); PLATELET COUNT 147 K/UL (150-450); RED BLOOD COUNT 2.91 M/UL (4.70-6.10); WHITE BLOOD COUNT 7.8 K/UL (4.8-10.8)
[2017-04-13] MEDS: metroNIDAZOLE 500mg 100 ML IVPB SCH ×2 (05:48→14:15)
[2017-04-13 05:50] LABS: ANION GAP 14 (5-15); CALCIUM 9.3 mg/dL (8.6-10.2); CARBON DIOXIDE 25 mEQ/L (20-30); CHLORIDE 98 mEQ/L (98-107); CREATININE 0.5 mg/dL (0.7-1.2); GLOMERULAR FILTRATION RATE > 60 mL/min (>60); HEMOLYSIS 3; POTASSIUM 3.9 mEQ/L (3.4-4.9); SODIUM 137 mEQ/L (135-145)
[2017-04-13] MEDS: NovoLOG Insulin Flexpen SUBQ SCH ×2 (05:50→11:42)
[2017-04-13 08:00] VITALS: BP 115/54
[2017-04-13] MEDS: Metoprolol 25mg tab GT SCH (08:33)
[2017-04-13] MEDS: Digoxin Elixir 0.125mg GT SCH (08:33)
[2017-04-13] MEDS: levETIRAcetam 500mg/5ml Liquid GT SCH (08:33)
--- NOTE | 2017-04-13 11:31 | GI Progress Note ---
Assessment/Plan Problems: (1) Feeding by G-tube ICD Codes: Z93.1 - Gastrostomy status SNOMED: 911156310, 836865182 (2) Hemorrhagic shock SNOMED: 540460 (3) Sepsis ICD Codes: A41.9 - Sepsis, unspecified organism SNOMED: 18297737 Status: stable Status Narrative Discussed with Dr. Piedra. Assessment/Plan OB stool positive s/p colonoscopy SUMMARY OF FINDINGS: Normal colonoscopic examination except for internal hemorrhoids. s/p EGD - SUMMARY OF FINDINGS: 1. Diffuse gastritis, status post biopsy. 2. G-tube in place. 3. Narrowing at the GE junction without any obvious esophagitis. RECOMMENDATIONS: Resume G-tube feeding. monitor H&H, transfuse prn Prevacid fu labs Subjective Subjective limited Objective Last 24 Hour Vital Signs Date Time Temp Pulse Resp B/P Pulse Ox O2 Delivery O2 Flow Rate FiO2 04/13/17 10:39 72 16 40 04/13/17 08:40 75 17 40 04/13/17 08:33 69 115/54 04/13/17 08:33 69 04/13/17 08:00 98.2 69 15 115/54 100 Mechanical Ventilator 40 04/13/17 08:00 30 04/13/17 07:37 68 04/13/17 07:06 71 14 40 04/13/17 05:11 73 12 40 04/13/17 04:00 30 04/13/17 04:00 97.8 79 14 117/68 100 Mechanical Ventilator 40 04/13/17 04:00 73 04/13/17 03:25 71 13 40 04/13/17 02:59 97.7 04/13/17 02:59 97.9 04/13/17 01:02 62 12 40 04/13/17 00:00 99.5 04/13/17 00:00 30 04/13/17 00:00 79 04/13/17 00:00 99.3 82 12 103/66 100 Mechanical Ventilator 40 04/12/17 22:57 63 15 40 04/12/17 21:22 102 15 40 04/12/17 20:29 60 103/56 04/12/17 20:00 98.4 60 12 103/56 100 Mechanical Ventilator 40 04/12/17 20:00 59 04/12/17 20:00 30 04/12/17 19:12 60 12 40 04/12/17 16:59 78 20 40 04/12/17 16:22 65 17 100 04/12/17 16:20 84 17 100 04/12/17 16:00 30 04/12/17 16:00 99.1 76 13 121/67 100 Mechanical Ventilator 40 04/12/17 16:00 83 04/12/17 14:32 84 12 40 04/12/17 12:42 78 17 40 04/12/17 12:00 98.8 72 12 118/65 100 Mechanical Ventilator 40 04/12/17 12:00 75 04/12/17 12:00 30 Intake and Output 04/12/17 04/13/17 19:00 07:00 Intake Total 470 ml 520 ml Output Total 300 ml 1125 ml Balance 170 ml -605 ml Free Water 150 ml IV Total 450 ml 100 ml Tube Feeding 20 ml 270 ml Output Urine Total 300 ml 1125 ml # Voids 1 # Bowel Movements 1 3 Laboratory Tests Test 04/13/17 04:00 White Blood Count 7.8 K/UL (4.8-10.8) Red Blood Count 2.91 M/UL (4.70-6.10) L Hemoglobin 8.4 G/DL (14.2-18.0) L Hematocrit 26.1 % (42.0-52.0) L Mean Corpuscular Volume 90 FL (80-99) Mean Corpuscular Hemoglobin 28.9 PG (27.0-31.0) Mean Corpuscular Hemoglobin Concent 32.2 G/DL (32.0-36.0) Red Cell Distribution Width 17.0 % (11.6-14.8) H Platelet Count 147 K/UL (150-450) L Mean Platelet Volume 8.7 FL (6.5-10.1) Neutrophils (%) (Auto) 52.7 % (45.0-75.0) Lymphocytes (%) (Auto) 29.5 % (20.0-45.0) Monocytes (%) (Auto) 5.5 % (1.0-10.0) Eosinophils (%) (Auto) 10.9 % (0.0-3.0) H Basophils (%) (Auto) 1.4 % (0.0-2.0) Sodium Level 137 mEQ/L (135-145) Potassium Level 3.9 mEQ/L (3.4-4.9) Chloride Level 98 mEQ/L (98-107) Carbon Dioxide Level 25 mEQ/L (20-30) Anion Gap 14 (5-15) Blood Urea Nitrogen 4 mg/dL (7-23) L Creatinine 0.5 mg/dL (0.7-1.2) L Estimat Glomerular Filtration Rate > 60 mL/min (>60) Glucose Level 222 mg/dL (74-106) H Calcium Level 9.3 mg/dL (8.6-10.2) Height (Feet): 5 Height (Inches): 4.00 Weight (Pounds): 142 General Appearance: no apparent distress, alert Cardiovascular: normal rate Respiratory/Chest: normal breath sounds, no respiratory distress Abdominal Exam: normal bowel sounds, non tender, soft Shanti Nicole N.P. Apr 13, 2017 11:31
[2017-04-13 12:09] VITALS: BP 120/58
[2017-04-13] MEDS ORDERED: METRONIDAZOLE500 MG ORAL (12:39)
[2017-04-13] MEDS ORDERED: DuoNeb 0.5-3(2.5)mg/3ml neb HHN PRN (14:15)
[2017-04-13] MEDS ORDERED: LORazepam Inj 2mg/ml 1ml IV PRN (14:15)
[2017-04-13 16:00] VITALS: BP 112/66
[2017-04-13] MEDS ORDERED: NS 275ml ONE (17:30)
[2017-04-13] MEDS ORDERED: Tubing IV Secondary IV ONE (17:30)
[2017-04-13] MEDS ORDERED: 1/2 NS 1000ml IV ONE (17:30)
--- NOTE | 2017-04-14 06:12 | Discharge Summary ---
Discharge Summary Hospital Course Date of Admission Apr 08, 2017 at 19:35 Date of Discharge Apr 13, 2017 at 17:31 Admitting Diagnosis GI BLEED HPI Melinda Alfonso is a 41 year old male who was admitted on Apr 08, 2017 at 19:35 for Gi Bleed Hospital Course [id number] Discharge Discharge Disposition Patient was discharged to SNF/Subacute Facility(03) Discharge Diagnoses: Aniyah Das NP Apr 14, 2017 06:12
--- NOTE | 2017-04-14 06:46 | Discharge Summary 2 SIG ---
DATE OF ADMISSION: 04/08/2017 DATE OF DISCHARGE: 04/13/2017 CONSULTANTS: 1. Bolivar Piedra M.D. 2. Charlie Newman M.D. BRIEF HOSPITAL COURSE: The patient is a 41-year-old male with history of chronic respiratory failure, on trach and vent with PEG in a vegetative state, was sent from [facility] with episode of blood in stools. On evaluation at ED, the patient was normotensive, but tachycardic. Hemoglobin and hematocrit were stable. Chest x-ray showed no acute cardiopulmonary disease. EKG showed sinus rhythm with no acute changes. The patient was admitted to [facility] for evaluation of GI bleed. He had low-grade fever of [address] Newman was consulted and was given Flagyl. He was given proton-pump inhibitors and was seen by Dr. Piedra. He underwent colonoscopy on 04/10/2017. Findings showed normal colonoscopic examination except for internal hemorrhoids. Fever resolved and there was no leukocytosis. Unable to send stool for C. difficile. He had further bleed. Hemoglobin dropped to 7. He underwent one unit of packed RBC blood transfusion and underwent EGD on 04/12/2017 with findings of diffuse gastritis and narrowing at the GE junction without any obvious esophagitis. Hemoglobin and hematocrit were stable. The patient was then discharged back to SNF. FINAL DIAGNOSES: 1. Gastrointestinal bleed. 2. Hemorrhagic shock. 3. Chronic vegetative state. 4. Chronic respiratory failure, on trach and vent. 5. Feeding by gastrostomy tube. 6. Diarrhea, possible Clostridium difficile colitis. 7. 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 8. Chronic obstructive pulmonary disease. 9. Diabetes mellitus, type 2. 10. alf resident. 11. Gastritis. Go Hernandez M.D. I have been assigned to dictate discharge summary on this account and I was not involved in the patient's management. Aniyah Das N.P. DR: [place] JOB#: [id number] CC: [email or web address]
== END 2017-04-13 17:31 | DRG 377 ==
LOC: EDBD 17:56 → EMR 18:36 → EDBEDREQ 19:08 → 2W 19:35
PROC: 5A1955Z Respiratory Ventilation, Greater than 96 Consecutive Hours (ICD-10-PCS; principal; 2017-04-08)
PROC: 0DJD8ZZ Inspection of Lower Intestinal Tract, Via Natural or Artificial Opening Endoscopic (ICD-10-PCS; 2017-04-10)
PROC: 02HV33Z Insertion of Infusion Device into Superior Vena Cava, Percutaneous Approach (ICD-10-PCS; 2017-04-11)
PROC: 30233N1 Transfusion of Nonautologous Red Blood Cells into Peripheral Vein, Percutaneous Approach (ICD-10-PCS; 2017-04-11)
PROC: 0DB68ZX Excision of Stomach, Via Natural or Artificial Opening Endoscopic, Diagnostic (ICD-10-PCS; 2017-04-12)
DX: K92.2 Gastrointestinal hemorrhage, unspecified (principal); G93.40 Encephalopathy, unspecified; R57.9 Shock, unspecified; R40.3 Persistent vegetative state; Z99.11 Dependence on respirator [ventilator] status; J96.10 Chronic respiratory failure, unspecified whether with hypoxia or hypercapnia; A04.7 Enterocolitis due to Clostridium difficile; Z43.1 Encounter for attention to gastrostomy; J44.9 Chronic obstructive pulmonary disease, unspecified; D64.9 Anemia, unspecified; K64.9 Unspecified hemorrhoids; K29.70 Gastritis, unspecified, without bleeding; Z43.0 Encounter for attention to tracheostomy; E11.9 Type 2 diabetes mellitus without complications; R13.10 Dysphagia, unspecified; G40.909 Epilepsy, unspecified, not intractable, without status epilepticus; Z87.820 Personal history of traumatic brain injury; E78.00 Pure hypercholesterolemia, unspecified; K64.8 Other hemorrhoids
CPT/HCPCS: 36415; 36569; 71010; 76937; 80048; 80053; 80069; 81003; 82270; 82962; 83540; 83550; 84484; 85007; 85025; 85610; 85730; 86850; 86900; 86901; 86920; 87081; 93005; 93970; 94002; 94003; 94150; 94664; J1815